=== PATIENT | female | born 1980 | race Caucasian/White ===

== ENCOUNTER 2021-04-06 18:14 | Inpatient (IN) | payer OTHER ==
[2021-04-06] MEDS ORDERED: ONDANSETRON 4 MG/2 ML VIAL IVP STA (19:44)
[2021-04-06] MEDS ORDERED: HYDROmorphone 0.5 MG/0.5 ML SYRINGE IVP STA (19:44)
[2021-04-06] MEDS ORDERED: SODIUM CHLORIDE 0.9% 500 ML 500 ML IV STA (19:44)
[2021-04-06 20:15] LABS: Appearance,Urine Turbid (Clear); Bacteria,Urine Many /hpf; Bilirubin,Urine 4+ (Negative); Blood,Urine Small (Negative); Cellular Casts,Urine 159 /lpf (0); Color,Urine Dark Brown; Glucose,Urine (UA) Trace (Negative); Granular Casts,Urine 10 /lpf (0); Hyaline Casts,Urine 119 /lpf (0-2); Ketones,Urine Negative (Negative); Leukocyte Esterase,Urine Small (Negative); Mucus,Urine Many /hpf; Nitrite,Urine Negative (Negative); PH, Urine 5.5 (5.0-8.0); Protein,Urine 1+ (Negative); RBC,Urine 7 /hpf (0-5); Specific Gravity,Urine 1.024 (1.001-1.035); Squamous Epithelial Cell,Urine 130 /hpf (0-4); WBC,Urine 57 /hpf (0-5)
[2021-04-06 20:26] LABS: ALT 65 U/L (4-34); AST 254 U/L (14-36); African American GFR (CKD) >90 (>60 ml/min/1.73 sqM); Albumin 3.3 g/dL (3.5-5.0); Alkaline Phosphatase 339 U/L (38-126); Anion Gap 16 mmol/L; Blood Urea Nitrogen 5 mg/dL (7-17); Calcium 8.2 mg/dL (8.4-10.2); Carbon Dioxide 21 mmol/L (22-30); Chloride 82 mmol/L (98-107); Glucose 124 mg/dL (74-99); Lipase 188 U/L (23-300); Non-African American GFR(CKD) >90 (>60 ml/min/1.73 sqM)
[2021-04-06 20:27] LABS: Potassium 3.2 mmol/L (3.5-5.1); Sodium 119 mmol/L (137-145); Total Bilirubin 15.7 mg/dL (0.2-1.3)
[2021-04-06 20:32] LABS: INR 1.7 (<1.2); Partial Thromboplastin Time 33.3 sec (22.0-30.0); Prothrombin Time 16.5 sec (9.0-12.0)
[2021-04-06 20:39] LABS: Anisocytosis Slight; Basophils # (A) 0.1 k/uL (0-0.2); Basophils % (A) 1 %; Eosinophils % (A) 0 %; HCT 39.7 % (34.0-46.0); HGB 13.2 gm/dL (11.4-16.0); Lymphocytes # (A) 1.4 k/uL (1.0-4.8); Lymphocytes % (A) 9 %; MCH 39.3 pg (25.0-35.0); MCHC 33.3 g/dL (31.0-37.0); MCV 118.2 fL (80.0-100.0); Macrocytosis Marked; Mean Platelet Volume 10.2; Monocytes % (A) 6 %; Neutrophils # (A) 13.2 k/uL (1.3-7.7); Neutrophils % (A) 83 %; RBC 3.36 m/uL (3.80-5.40); WBC 15.8 k/uL (3.8-10.6)
[2021-04-06] MEDS ORDERED: POTASSIUM CHLORIDE ER 20 MEQ TAB.ER PO STA (21:09)
--- NOTE | 2021-04-06 21:35 | US ---
EXAMINATION TYPE: US abdomen limited DATE OF EXAM: 04/06/2021 COMPARISON: NONE CLINICAL HISTORY: RUQ - jaundice, abd pain. Pain, jaundice. EXAM MEASUREMENTS: Liver Length: 15.7 cm Gallbladder Wall: 0.41 cm CBD: 1.12 cm Right Kidney: 11.0 x 5.5 x 6.3 cm Limited due to bowel gas. Pancreas: Limited due to bowel gas. Liver: Appears coarse in echotexture. Hyperechoic. Gallbladder: Folds seen. Wall appears to be thickened. Evidence for sonographic Grimes's sign: Patient felt pain throughout exam. CBD: Appears dilated. Right Kidney: No hydronephrosis or masses seen -Fluid seen within the right upper quadrant measuring 9.0 x 7.4 x 7.0 cm. IMPRESSION: Small right upper quadrant abdominal ascites. Heterogeneous liver, suggestive of chronic disease. Nonspecific gallbladder wall thickening, may be reactive to ascites. No definite gallstones seen. Dilated CBD.
--- NOTE | 2021-04-06 21:45 | ED ---
General Adult HPI - General Chief complaint: Abdominal Pain Stated complaint: Jaundice/Abd Pain Time Seen by Provider: 04/06/21 19:03 Source: patient Mode of arrival: ambulatory Limitations: no limitations - History of Present Illness Initial comments: 40 year-old female patient presents to the emergency department for evaluation of upper abdominal pain and yellowing to her skin and eyes. Patient states that the yellowing started about a week ago. States that with this she also developed pain to the upper abdomen states it radiates to her back. States she is unable to eat. Reports nausea but no vomiting. Does report daily alcohol use. Denies history of abdominal surgery. States her stools are brown. Denies difficulty with urination. Denies any increased swelling in the abdomen. Denies fever or chills. Patient denies any recent rash, cough, shortness of breath, chest pain, diarrhea, constipation, numbness, tingling, dizziness, weakness, headache, visual changes, or any other complaints. - Related Data Home Medications Medication Instructions Recorded Confirmed L.acidoph,Paracasei, B.lactis 1 cap PO DAILY 04/06/21 04/06/21 [Probiotic] Allergies Allergy/AdvReac Type Severity Reaction Status Date / Time No Known Allergies Allergy Verified 04/06/21 19:47 Review of Systems ROS Statement: Those systems with pertinent positive or pertinent negative responses have been documented in the HPI. ROS Other: All systems not noted in ROS Statement are negative. Past Medical History Additional Past Medical History / Comment(s): alcoholism History of Any Multi-Drug Resistant Organisms: None Reported Additional Past Surgical History / Comment(s): foot, nasal Past Psychological History: No Psychological Hx Reported Smoking Status: Never smoker Past Alcohol Use History: Abuse, Daily Past Drug Use History: None Reported General Exam Limitations: no limitations General appearance: alert, in no apparent distress, other (This is a well-developed, well-nourished adult female patient in no acute distress. Vital signs upon presentation are temperature 97.5F, pulse 122, respirations 18, blood pressure 123/78, pulse ox 100% on room air.) Eye exam: Present: PERRL, EOMI, scleral icterus. Absent: conjunctival injection , periorbital swelling ENT exam: Present: normal exam, normal oropharynx, mucous membranes moist Respiratory exam: Present: normal lung sounds bilaterally. Absent: respiratory distress, wheezes, rales, rhonchi, stridor Cardiovascular Exam: Present: regular rate, normal rhythm, normal heart sounds. Absent: systolic murmur, diastolic murmur, rubs, gallop, clicks GI/Abdominal exam: Present: soft, tenderness (Midepigastric), normal bowel sounds. Absent: distended, guarding, rebound, rigid Neurological exam: Present: alert, oriented X3, CN II-XII intact Psychiatric exam: Present: normal affect, normal mood Skin exam: Present: warm, dry, intact, normal color. Absent: rash Course Vital Signs 04/06/21 04/06/21 04/06/21 18:37 19:03 20:03 Temperature 97.5 F L Pulse Rate 122 H 120 H 117 H Respiratory 18 18 18 Rate Blood Pressure 123/78 131/93 123/85 O2 Sat by Pulse 100 98 98 Oximetry 04/06/21 04/06/21 21:32 22:54 Temperature 97.6 F Pulse Rate 103 H 107 H Respiratory 18 18 Rate Blood Pressure 131/100 132/100 O2 Sat by Pulse 97 96 Oximetry Medical Decision Making - Medical Decision Making 40-year-old female patient presents to the emergency department today for junior luation of yellowing skin and upper abdominal pain. Physical examination did reveal a distended abdomen, scleral icterus, jaundice. She is neurologically intact. Labs reviewed and did reveal white blood cell count of 15.8, INR 1.7. Sodium 119, potassium 3.2. Glucose 124, lactic acid 4.7, bilirubin 15.7, AST 254, ALT 65, alk phos 339. Albumin is 3.3. Urinalysis showed 57 WBC, but 130 squamous epithelial cells so we will send this for culture. Alcohol less than 10 here. Labs added on for further evaluation of hyponatremia. She was given 500ml fluid bolus on arrival. Further fluids will be held pending repeat sodium level. Patient will be admitted. Consults to nephrology and gastroenterology. She is agreeable with this plan. Case discussed with my attending Dr. Raines. - Lab Data Result diagrams: 04/06/21 19:57 04/06/21 19:57 Lab Results 04/06/21 04/06/21 04/06/21 Range/Units 19:57 19:57 19:57 WBC 15.8 H (3.8-10.6) k/uL RBC 3.36 L (3.80-5.40) m/uL Hgb 13.2 (11.4-16.0) gm/dL Hct 39.7 (34.0-46.0) % MCV 118.2 H (80.0-100.0) fL MCH 39.3 H (25.0-35.0) pg MCHC 33.3 (31.0-37.0) g/dL RDW 17.0 H (11.5-15.5) % Plt Count (150-450) k/uL MPV 10.2 Neutrophils % 83 % Lymphocytes % 9 % Monocytes % 6 % Eosinophils % 0 % Basophils % 1 % Neutrophils # 13.2 H (1.3-7.7) k/uL Lymphocytes # 1.4 (1.0-4.8) k/uL Monocytes # 1.0 (0-1.0) k/uL Eosinophils # 0.0 (0-0.7) k/uL Basophils # 0.1 (0-0.2) k/uL Manual Slide Review Performed Anisocytosis Slight Macrocytosis Marked A PT 16.5 H (9.0-12.0) sec INR 1.7 H (<1.2) APTT 33.3 H (22.0-30.0) sec Sodium (137-145) mmol/L Potassium (3.5-5.1) mmol/L Chloride (98-107) mmol/L Carbon Dioxide (22-30) mmol/L Anion Gap mmol/L BUN (7-17) mg/dL Creatinine (0.52-1.04) mg/dL Est GFR (CKD-EPI)AfAm (>60 ml/min/1.73 sqM) Est GFR (CKD-EPI)NonAf (>60 ml/min/1.73 sqM) Glucose (74-99) mg/dL Lactic Ac Sepsis Rflx Plasma Lactic Acid Robin (0.7-2.0) mmol/L Calcium (8.4-10.2) mg/dL Total Bilirubin (0.2-1.3) mg/dL AST (14-36) U/L ALT (4-34) U/L Alkaline Phosphatase (38-126) U/L Total Protein (6.3-8.2) g/dL Albumin (3.5-5.0) g/dL Lipase (23-300) U/L Urine Color Dark Brown Urine Appearance Turbid H (Clear) Urine pH 5.5 (5.0-8.0) Ur Specific [place] 1.024 (1.001-1.035) Urine Protein 1+ H (Negative) Urine Glucose (UA) Trace H (Negative) Urine Ketones Negative (Negative) Urine Blood Small H (Negative) Urine Nitrite Negative (Negative) Urine Bilirubin 4+ H (Negative) Urine Urobilinogen 6.0 (<2.0) mg/dL Ur Leukocyte Esterase Small H (Negative) Urine RBC 7 H (0-5) /hpf Urine WBC 57 H (0-5) /hpf Urine WBC Clumps Many H (None) /hpf Ur Squamous Epith Cells 130 H (0-4) /hpf Urine Bacteria Many H (None) /hpf Cellular Casts 159 (0) /lpf Hyaline Casts 119 H (0-2) /lpf Granular Casts 10 (0) /lpf Urine Mucus Many H (None) /hpf Urine HCG, Qual (Not Detectd) Serum Alcohol mg/dL 04/06/21 04/06/21 04/06/21 Range/Units 19:57 19:57 19:57 WBC (3.8-10.6) k/uL RBC (3.80-5.40) m/uL Hgb (11.4-16.0) gm/dL Hct (34.0-46.0) % MCV (80.0-100.0) fL MCH (25.0-35.0) pg MCHC (31.0-37.0) g/dL RDW (11.5-15.5) % Plt Count (150-450) k/uL MPV Neutrophils % % Lymphocytes % % Monocytes % % Eosinophils % % Basophils % % Neutrophils # (1.3-7.7) k/uL Lymphocytes # (1.0-4.8) k/uL Monocytes # (0-1.0) k/uL Eosinophils # (0-0.7) k/uL Basophils # (0-0.2) k/uL Manual Slide Review Anisocytosis Macrocytosis PT (9.0-12.0) sec INR (<1.2) APTT (22.0-30.0) sec Sodium 119 L* (137-145) mmol/L Potassium 3.2 L (3.5-5.1) mmol/L Chloride 82 L (98-107) mmol/L Carbon Dioxide 21 L (22-30) mmol/L Anion Gap 16 mmol/L BUN 5 L (7-17) mg/dL Creatinine 0.62 (0.52-1.04) mg/dL Est GFR (CKD-EPI)AfAm >90 (>60 ml/min/1.73 sqM) Est GFR (CKD-EPI)NonAf >90 (>60 ml/min/1.73 sqM) Glucose 124 H (74-99) mg/dL Lactic Ac Sepsis Rflx Plasma Lactic Acid Robin 4.7 H* (0.7-2.0) mmol/L Calcium 8.2 L (8.4-10.2) mg/dL Total Bilirubin 15.7 H* (0.2-1.3) mg/dL AST 254 H (14-36) U/L ALT 65 H (4-34) U/L Alkaline Phosphatase 339 H (38-126) U/L Total Protein 8.0 (6.3-8.2) g/dL Albumin 3.3 L (3.5-5.0) g/dL Lipase 188 (23-300) U/L Urine Color Urine Appearance (Clear) Urine pH (5.0-8.0) Ur Specific [place] (1.001-1.035) Urine Protein (Negative) Urine Glucose (UA) (Negative) Urine Ketones (Negative) Urine Blood (Negative) Urine Nitrite (Negative) Urine Bilirubin (Negative) Urine Urobilinogen (<2.0) mg/dL Ur Leukocyte Esterase (Negative) Urine RBC (0-5) /hpf Urine WBC (0-5) /hpf Urine WBC Clumps (None) /hpf Ur Squamous Epith Cells (0-4) /hpf Urine Bacteria (None) /hpf Cellular Casts (0) /lpf Hyaline Casts (0-2) /lpf Granular Casts (0) /lpf Urine Mucus (None) /hpf Urine HCG, Qual Not Detected (Not Detectd) Serum Alcohol mg/dL 04/06/21 04/06/21 Range/Units 20:29 20:45 WBC (3.8-10.6) k/uL RBC (3.80-5.40) m/uL Hgb (11.4-16.0) gm/dL Hct (34.0-46.0) % MCV (80.0-100.0) fL MCH (25.0-35.0) pg MCHC (31.0-37.0) g/dL RDW (11.5-15.5) % Plt Count (150-450) k/uL MPV Neutrophils % % Lymphocytes % % Monocytes % % Eosinophils % % Basophils % % Neutrophils # (1.3-7.7) k/uL Lymphocytes # (1.0-4.8) k/uL Monocytes # (0-1.0) k/uL Eosinophils # (0-0.7) k/uL Basophils # (0-0.2) k/uL Manual Slide Review Anisocytosis Macrocytosis PT (9.0-12.0) sec INR (<1.2) APTT (22.0-30.0) sec Sodium (137-145) mmol/L Potassium (3.5-5.1) mmol/L Chloride (98-107) mmol/L Carbon Dioxide (22-30) mmol/L Anion Gap mmol/L BUN (7-17) mg/dL Creatinine (0.52-1.04) mg/dL Est GFR (CKD-EPI)AfAm (>60 ml/min/1.73 sqM) Est GFR (CKD-EPI)NonAf (>60 ml/min/1.73 sqM) Glucose (74-99) mg/dL Lactic Ac Sepsis Rflx Y Plasma Lactic Acid Robin (0.7-2.0) mmol/L Calcium (8.4-10.2) mg/dL Total Bilirubin (0.2-1.3) mg/dL AST (14-36) U/L ALT (4-34) U/L Alkaline Phosphatase (38-126) U/L Total Protein (6.3-8.2) g/dL Albumin (3.5-5.0) g/dL Lipase (23-300) U/L Urine Color Urine Appearance (Clear) Urine pH (5.0-8.0) Ur Specific [place] (1.001-1.035) Urine Protein (Negative) Urine Glucose (UA) (Negative) Urine Ketones (Negative) Urine Blood (Negative) Urine Nitrite (Negative) Urine Bilirubin (Negative) Urine Urobilinogen (<2.0) mg/dL Ur Leukocyte Esterase (Negative) Urine RBC (0-5) /hpf Urine WBC (0-5) /hpf Urine WBC Clumps (None) /hpf Ur Squamous Epith Cells (0-4) /hpf Urine Bacteria (None) /hpf Cellular Casts (0) /lpf Hyaline Casts (0-2) /lpf Granular Casts (0) /lpf Urine Mucus (None) /hpf Urine HCG, Qual (Not Detectd) Serum Alcohol <10 mg/dL - Radiology Data Radiology results: report reviewed, image reviewed Ultrasound of the abdomen and right upper quadrant is obtained. Report is reviewed in its entirety. Impression by Dr. Samuels shows small right upper quadrant abdominal ascites, heterogenous liver, suggestive of chronic disease. Nonspecific gallbladder wall thickening, may be reactive to ascites. No definite gallstones seen. Dilated CBD. Disposition Clinical Impression: Liver failure, Hyponatremia, Hypokalemia, Lactic acidosis, Hypomagnesemia Disposition: ADMITTED IP TO THIS [facility] Condition: Serious Decision Date: 04/06/21 Decision Time: 22:14
[2021-04-06] MEDS ORDERED: NALOXONE 0.4 MG/ML 1 ML VIAL IV PRN (22:40)
[2021-04-06] MEDS ORDERED: ONDANSETRON 4 MG/2 ML VIAL IVP PRN (22:40)
[2021-04-06] MEDS ORDERED: LORazepam 2 MG/ML INJ IV PRN ×3 (23:06)
[2021-04-06] MEDS ORDERED: THIAMINE 100 MG/ML 2 ML VIAL IM STA (23:06)
[2021-04-06 23:19] LABS: Magnesium 1.3 mg/dL (1.6-2.3); Uric Acid 3.3 mg/dL (3.7-7.4)
[2021-04-06] MEDS ORDERED: Magnesium Replacement Protocol 1 EACH MISC MISCELLANE PRN (23:26)
[2021-04-06] MEDS: THIAMINE 100 MG TAB PO SCH (23:36)
[2021-04-06] MEDS: MAGNESIUM SULFATE-D5W PMX 1 GM in DEXTROSE/WATER 1 100ML.BAG IVPB SCH (23:43)
[2021-04-06 23:57] LABS: Creatinine,Urine Random 429.2 mg/dL
[2021-04-07] MEDS: MAGNESIUM SULFATE-D5W PMX 1 GM in DEXTROSE/WATER 1 100ML.BAG IVPB SCH ×2 (01:00→02:34)
--- NOTE | 2021-04-07 02:18 | P.HPIM ---
History of Present Illness H&P Date: 04/06/21 Patient is a 40-year-old female with a PMH of EtOH abuse who presented to the emergency room with complaints of abdominal distention and yellowing of her skin. The patient reports that her symptoms gradually worsened over the past 1 week. She reports diffuse mild abdominal discomfort due to the distention, some of which radiates to the back bilaterally. She reports poor appetite. Denied nausea, vomiting, diarrhea. She reports drinking 1-1/2 pint of libra daily for the past 2-3 years. Last drink was yesterday. Has been drinking heavily for the past 10 years or so. Denied any history of abdominal surgeries. Denied blood in stools or black tarry stools. Further denied chest pain, shortness of breath, cough, fever, chills. Denied headaches, weakness, numbness, tingling. The patient lives at home with her boyfriend who financial supports her. Review of systems: Pertinent positives and negatives as discussed in HPI, a complete review of systems was performed and all other systems are negative. Physical examination: General: Jaundiced female, no distress, appears older than stated age, normal weight Derm: no unusual rashes/lesions no unusual ecchymoses, warm, dry Head: atraumatic, normocephalic, symmetric Eyes: EOMI, no lid lag, scleral icterus noted, pupils equal round reactive to light ENT: Nose and ears atraumatic, no thrush, no pharyngeal erythema Neck: No thyromegaly, no cervical lymphadenopathy, trachea midline, supple Mouth: no lip lesion, mucus membranes moist Cardiovascular: S1S2 reg, no murmur, positive posterior tibial pulse bilateral, no edema, capillary refill less than 2 seconds Lungs: CTA bilateral, no rhonchi, no rales , no accessory muscle use Abdominal: soft, slightly distended, nontender to palpation, no guarding, no appreciable organomegaly, normal bowel sounds Ext: no gross muscle atrophy, muscle strength 5 out of 5 in all 4 extremities grossly, no contractures, Neuro: CN II-XI grossly intact, light touch intact all 4 extremities, finger to nose within normal limits, no asterixis Psych: Alert, oriented, appropriate affect Assessment/plan Severe hyponatremia, may be secondary to hepatorenal syndrome with decompensated cirrhosis -Workup ordered -Fluid restriction for now -Monitor closely and avoid overcorrection -Nephrology consulted Hypokalemia, hypomagnesemia -Replace and monitor Newly diagnosed alcoholic cirrhosis -MELD score 30: 53% 3 month mortality -Discussed with poor prognosis with the patient and urged the importance of abstinence from alcohol -Ceftriaxone for SBP prophylaxis -GI consult -Hold off on beta blockade at this time due to severe hyponatremia Significant history of EtOH abuse -Thiamine -CIWA protocol Lactic acidosis -Hold off on IV fluids -Monitor for resolution Macrocytosis -Obtain anemia panel DVT prophylaxis -IPCDs The patient is admitted with an anticipated greater than 2 midnight stay for evaluation of cirrhosis CODE STATUS: Full Code Discussed with: Patient, Boyfriend Anticipated discharge date: 2-[address]: Home Past Medical History Additional Past Medical History / Comment(s): alcoholism History of Any Multi-Drug Resistant Organisms: None Reported Additional Past Surgical History / Comment(s): foot, nasal Past Psychological History: No Psychological Hx Reported Smoking Status: Never smoker Past Alcohol Use History: Abuse, Daily Past Drug Use History: None Reported - Past Family History Father Family Medical History: Hypertension Medications and Allergies Home Medications Medication Instructions Recorded Confirmed Type L.acidoph,Paracasei, B.lactis 1 cap PO DAILY 04/06/21 04/06/21 History [Probiotic] Allergies Allergy/AdvReac Type Severity Reaction Status Date / Time No Known Allergies Allergy Verified 04/06/21 19:47 Physical Exam Vitals: Vital Signs Temp Pulse Resp BP Pulse Ox 04/06/21 22:54 107 H 18 132/100 96 04/06/21 21:32 97.6 F 103 H 18 131/100 97 04/06/21 20:03 117 H 18 123/85 98 04/06/21 19:03 120 H 18 131/93 98 04/06/21 18:37 97.5 F L 122 H 18 123/78 100 Intake and Output 04/06/21 04/06/21 04/07/21 14:59 22:59 06:59 Other: Weight 61.235 kg Results CBC & Chem 7: 04/06/21 19:57 04/06/21 19:57 Labs: Abnormal Lab Results - Last 24 Hours (Table) 04/06/21 04/06/21 04/06/21 Range/Units 19:57 19:57 19:57 WBC 15.8 H (3.8-10.6) k/uL RBC 3.36 L (3.80-5.40) m/uL MCV 118.2 H (80.0-100.0) fL MCH 39.3 H (25.0-35.0) pg RDW 17.0 H (11.5-15.5) % Neutrophils # 13.2 H (1.3-7.7) k/uL Macrocytosis Marked A PT 16.5 H (9.0-12.0) sec INR 1.7 H (<1.2) APTT 33.3 H (22.0-30.0) sec Sodium (137-145) mmol/L Potassium (3.5-5.1) mmol/L Chloride (98-107) mmol/L Carbon Dioxide (22-30) mmol/L BUN (7-17) mg/dL Glucose (74-99) mg/dL Plasma Lactic Acid Robin (0.7-2.0) mmol/L Uric Acid (3.7-7.4) mg/dL Calcium (8.4-10.2) mg/dL Magnesium (1.6-2.3) mg/dL Total Bilirubin (0.2-1.3) mg/dL AST (14-36) U/L ALT (4-34) U/L Alkaline Phosphatase (38-126) U/L Albumin (3.5-5.0) g/dL Urine Appearance Turbid H (Clear) Urine Protein 1+ H (Negative) Urine Glucose (UA) Trace H (Negative) Urine Blood Small H (Negative) Urine Bilirubin 4+ H (Negative) Ur Leukocyte Esterase Small H (Negative) Urine RBC 7 H (0-5) /hpf Urine WBC 57 H (0-5) /hpf Urine WBC Clumps Many H (None) /hpf Ur Squamous Epith Cells 130 H (0-4) /hpf Urine Bacteria Many H (None) /hpf Hyaline Casts 119 H (0-2) /lpf Urine Mucus Many H (None) /hpf 04/06/21 04/06/21 04/06/21 Range/Units 19:57 19:57 22:50 WBC (3.8-10.6) k/uL RBC (3.80-5.40) m/uL MCV (80.0-100.0) fL MCH (25.0-35.0) pg RDW (11.5-15.5) % Neutrophils # (1.3-7.7) k/uL Macrocytosis PT (9.0-12.0) sec INR (<1.2) APTT (22.0-30.0) sec Sodium 119 L* (137-145) mmol/L Potassium 3.2 L (3.5-5.1) mmol/L Chloride 82 L (98-107) mmol/L Carbon Dioxide 21 L (22-30) mmol/L BUN 5 L (7-17) mg/dL Glucose 124 H (74-99) mg/dL Plasma Lactic Acid Robin 4.7 H* 3.1 H* (0.7-2.0) mmol/L Uric Acid (3.7-7.4) mg/dL Calcium 8.2 L (8.4-10.2) mg/dL Magnesium (1.6-2.3) mg/dL Total Bilirubin 15.7 H* (0.2-1.3) mg/dL AST 254 H (14-36) U/L ALT 65 H (4-34) U/L Alkaline Phosphatase 339 H (38-126) U/L Albumin 3.3 L (3.5-5.0) g/dL Urine Appearance (Clear) Urine Protein (Negative) Urine Glucose (UA) (Negative) Urine Blood (Negative) Urine Bilirubin (Negative) Ur Leukocyte Esterase (Negative) Urine RBC (0-5) /hpf Urine WBC (0-5) /hpf Urine WBC Clumps (None) /hpf Ur Squamous Epith Cells (0-4) /hpf Urine Bacteria (None) /hpf Hyaline Casts (0-2) /lpf Urine Mucus (None) /hpf 04/06/21 Range/Units 22:50 WBC (3.8-10.6) k/uL RBC (3.80-5.40) m/uL MCV (80.0-100.0) fL MCH (25.0-35.0) pg RDW (11.5-15.5) % Neutrophils # (1.3-7.7) k/uL Macrocytosis PT (9.0-12.0) sec INR (<1.2) APTT (22.0-30.0) sec Sodium (137-145) mmol/L Potassium (3.5-5.1) mmol/L Chloride (98-107) mmol/L Carbon Dioxide (22-30) mmol/L BUN (7-17) mg/dL Glucose (74-99) mg/dL Plasma Lactic Acid Robin (0.7-2.0) mmol/L Uric Acid 3.3 L (3.7-7.4) mg/dL Calcium (8.4-10.2) mg/dL Magnesium 1.3 L (1.6-2.3) mg/dL Total Bilirubin (0.2-1.3) mg/dL AST (14-36) U/L ALT (4-34) U/L Alkaline Phosphatase (38-126) U/L Albumin (3.5-5.0) g/dL Urine Appearance (Clear) Urine Protein (Negative) Urine Glucose (UA) (Negative) Urine Blood (Negative) Urine Bilirubin (Negative) Ur Leukocyte Esterase (Negative) Urine RBC (0-5) /hpf Urine WBC (0-5) /hpf Urine WBC Clumps (None) /hpf Ur Squamous Epith Cells (0-4) /hpf Urine Bacteria (None) /hpf Hyaline Casts (0-2) /lpf Urine Mucus (None) /hpf
[2021-04-07] MEDS: THIAMINE 100 MG TAB PO SCH ×2 (06:30→16:46)
[2021-04-07 08:04] LABS: African American GFR (CKD) >90 (>60 ml/min/1.73 sqM); Anion Gap 10 mmol/L; Blood Urea Nitrogen 6 mg/dL (7-17); Calcium 8.6 mg/dL (8.4-10.2); Carbon Dioxide 27 mmol/L (22-30); Chloride 82 mmol/L (98-107); Glucose 119 mg/dL (74-99); Magnesium 2.4 mg/dL (1.6-2.3); Non-African American GFR(CKD) >90 (>60 ml/min/1.73 sqM); Potassium 3.9 mmol/L (3.5-5.1)
[2021-04-07 08:05] LABS: Sodium 119 mmol/L (137-145)
[2021-04-07 10:21] LABS: Albumin 2.8 g/dL (3.5-5.0); Bilirubin, Delta 3.6 mg/dL (0.0-0.2); Bilirubin,Unconjugated 2.7 mg/dL (0.0-1.1); Total Bilirubin 14.3 mg/dL (0.2-1.3); Total Protein 7.2 g/dL (6.3-8.2)
[2021-04-07] MEDS: SODIUM CHLORIDE TAB 1 GM TAB PO SCH ×2 (10:32→20:47)
[2021-04-07 10:33] LABS: INR 1.7 (<1.2); Prothrombin Time 16.6 sec (9.0-12.0)
--- NOTE | 2021-04-07 12:20 | CONS ---
CONSULTATION REASON FOR CONSULT: Hyponatremia. HISTORY OF PRESENT ILLNESS: The patient is a 40-year-old female who was admitted to the hospital with a history of increased lower extremity swelling as well as abdominal swelling. The patient has history of significant alcohol use for many years. She was noted to have a serum sodium of 119. Patient denies any established history of chronic liver disease. She denied any diarrhea, nausea, vomiting prior to admission. The patient is not aware of having had low sodium levels previously. Patient denies use of any medications at home except probiotics. There is no history of numbness, tingling sensation. Serum sodium was 119 on admission. The patient did get a 500 mL bolus in the emergency room and her serum sodium this morning was again 119. PAST MEDICAL HISTORY: None. PAST SURGICAL HISTORY: None. SOCIAL HISTORY: Negative for smoking, but patient has history of alcohol abuse. MEDICATIONS: Probiotics. ALLERGIES: None. REVIEW OF SYSTEMS: As per HPI. Other systems negative. PHYSICAL EXAMINATION: Currently comfortable, awake, alert, oriented x3, not in any acute distress. Blood pressure 140/62, heart rate 101 per minute, she is afebrile. Examination of the heart S1, S2. Examination of the lungs, decreased breath sounds at the bases. Abdomen is soft, nontender. Examination of lower extremities shows no significant edema. Ascites is noted. [employer] exam grossly intact. LAB: Show sodium 119, potassium 3.9, chloride 82, CO2 is 27, BUN 6, serum creatinine 0.75. Lactic acid was 3.1, down to 1.9 now. Total bilirubin 14.3. Cortisol level 43. TSH 3.37. Random urine sodium less than 10. Urine osmolality 379. ASSESSMENT: 1. Hyponatremia associated with underlying chronic liver disease as well as alcohol abuse. Urine osmolality is not elevated and I will add sodium chloride tabs and repeat serum sodium in about 4 hours. I will consider normal saline challenge again based on her repeat sodium level this afternoon. The patient is advised to increase oral intake of protein and she is advised to decrease/discontinue use of alcohol. 2. Lactic acidosis currently improved. 3. Pyuria, rule out urinary tract infection. Patient is started on antibiotics. Urine culture currently pending. 4. ETOH abuse. 5. Hypomagnesemia associated with decreased oral intake. PLAN: Sodium chloride tabs 1 g x1 now and repeat sodium this afternoon and rechallenge with normal saline later on today. Increase oral protein intake. Thank you for this consultation. Will continue to follow the patient with you during her hospitalization. MMODL / IJN: [id number] /
[2021-04-07 13:34] LABS: African American GFR (CKD) >90 (>60 ml/min/1.73 sqM); Anion Gap 9 mmol/L; Blood Urea Nitrogen 6 mg/dL (7-17); Calcium 8.5 mg/dL (8.4-10.2); Carbon Dioxide 27 mmol/L (22-30); Chloride 82 mmol/L (98-107); Glucose 89 mg/dL (74-99); Non-African American GFR(CKD) >90 (>60 ml/min/1.73 sqM); Potassium 4.8 mmol/L (3.5-5.1)
[2021-04-07 13:35] LABS: Sodium 118 mmol/L (137-145)
[2021-04-07] MEDS ORDERED: MORPHINE SULFATE 2 MG/ML SYRINGE IVP STA (13:55)
[2021-04-07] MEDS ORDERED: SODIUM CHLORIDE 0.9% 1,000 ML IV SCH (14:15)
--- NOTE | 2021-04-07 14:59 | P.CONS ---
History of Present Illness - Reason for Consult Consult date: 04/07/21 hyperbilirubinemia, liver disease Requesting physician: Johnathan Brand - Chief Complaint Abdominal distention and jaundice - History of Present Illness This is a 40-year-old white female who presented to the emergency department yesterday evening with complaints of abdominal distention and yellowing of her eyes. She has a history of significant alcohol use and has been drinking since she was 19 years old. She states that she's been heavily drinking for the last 3-4 years, approximately 1-1/2 pints of libra a day. She started noticing abdominal distention and yellowing of her eyes approximately one week ago, Monday she started having a lot of bloating and dark urine. She went to urgent care and they sent her to the emergency department for further evaluation. He denies any previous known history of liver disease, she does not follow regularly with the primary care physician. Denies any previous history of hepatitis. On presentation BBC 15.8, hemoglobin 13.2, hematocrit 37.1 platelet count undetermined, INR 1.7, total bilirubin 15.7, alkaline phosphatase 339, AST 254, ALT 65, lipase 188. Patient was also noted to be hyponatremic, sodium level 119. Abdominal ultrasound shows small right upper quadrant abdominal ascites, heterogeneous liver, suggestive of chronic disease. Nonspecific gallbladder wall thickening, may be reactive to ascites. No definite gallstones seen. Review of Systems REVIEW OF SYSTEMS: CARDIOPULMONARY: No chest pain or shortness of breath. Gastrointestinal: Abdominal distention. No nausea or vomiting. No hematemesis, coffee-ground emesis. No rectal bleeding, or melena. GENITOURINARY: No dysuria or hematuria. MUSCULOSKELETAL: Reports normal range of motion., Joint pain. SKIN: No rashes. Jaundice. ENDOCRINE: No chills, fevers. No excessive weight gain or loss. No polydipsia or polyuria. PSYCHIATRIC: Unremarkable. NEUROLOGY: No change in mental status. Denies dizziness, headache. ENT: Vision unremarkable. CONSTITUTIONAL: No recent weight loss. No fever, chills, night sweats. Past Medical History Additional Past Medical History / Comment(s): alcoholism History of Any Multi-Drug Resistant Organisms: None Reported Additional Past Surgical History / Comment(s): foot, nasal Past Psychological History: No Psychological Hx Reported Smoking Status: Never smoker Past Alcohol Use History: Abuse, Daily Past Drug Use History: None Reported - Past Family History Father Family Medical History: Hypertension Medications and Allergies Home Medications Medication Instructions Recorded Confirmed Type L.acidoph,Paracasei, B.lactis 1 cap PO DAILY 04/06/21 04/06/21 History [Probiotic] Allergies Allergy/AdvReac Type Severity Reaction Status Date / Time No Known Allergies Allergy Verified 04/06/21 19:47 Physical Exam Vitals: Vital Signs Temp Pulse Pulse Resp BP BP Pulse Ox 04/07/21 12:00 108 H 20 105/72 98 04/07/21 08:00 97.7 F 98 20 119/85 97 04/07/21 04:15 98.0 F 101 H 16 140/62 97 04/07/21 02:00 104 H 16 04/07/21 00:02 97.6 F 104 H 16 140/76 98 04/06/21 22:54 107 H 18 132/100 96 04/06/21 21:32 97.6 F 103 H 18 131/100 97 04/06/21 20:03 117 H 18 123/85 98 04/06/21 19:03 120 H 18 131/93 98 04/06/21 18:37 97.5 F L 122 H 18 123/78 100 Intake and Output 04/06/21 04/07/21 04/07/21 22:59 06:59 14:59 Intake Total 0 Balance 0 Intake: Oral 0 Other: Voiding Method Toilet # Voids 1 Weight 61.235 kg 61.9 kg General appearance: The patient is alert, oriented, appears in no acute distress. HET: Head is normocephalic and atraumatic. Conjunctiva pink. Sclera deeply i cteric. Neck: Supple without lymphadenopathy. Trachea midline. Heart: S1 S2. Regular rate and rhythm. Lungs: Clear to auscultation. Abdomen: Soft, nontender, nondistended with bowel sounds. No guarding or rigidity. Skin: No rashes. Jaundice. Extremities: Normal skin color and turgor. No pedal edema. Neurological: No focal deficits. Alert and oriented 3.. Results CBC & Chem 7: 04/06/21 19:57 04/07/21 12:57 Labs: Abnormal Lab Results - Last 24 Hours (Table) 07/13/21 07/13/21 07/13/21 Range/Units 19:57 19:57 19:57 WBC 15.8 H (3.8-10.6) k/uL RBC 3.36 L (3.80-5.40) m/uL MCV 118.2 H (80.0-100.0) fL MCH 39.3 H (25.0-35.0) pg RDW 17.0 H (11.5-15.5) % Neutrophils # 13.2 H (1.3-7.7) k/uL Macrocytosis Marked A PT 16.5 H (9.0-12.0) sec INR 1.7 H (<1.2) APTT 33.3 H (22.0-30.0) sec Sodium (137-145) mmol/L Potassium (3.5-5.1) mmol/L Chloride (98-107) mmol/L Carbon Dioxide (22-30) mmol/L BUN (7-17) mg/dL Glucose (74-99) mg/dL Osmolality (280-301) mosm/kg Plasma Lactic Acid Robin (0.7-2.0) mmol/L Uric Acid (3.7-7.4) mg/dL Calcium (8.4-10.2) mg/dL Magnesium (1.6-2.3) mg/dL Total Bilirubin (0.2-1.3) mg/dL Conjugated Bilirubin (0.0-0.3) mg/dL Unconjugated Bilirubin (0.0-1.1) mg/dL Delta Bilirubin (0.0-0.2) mg/dL AST (14-36) U/L ALT (4-34) U/L Alkaline Phosphatase (38-126) U/L Albumin (3.5-5.0) g/dL Urine Appearance Turbid H (Clear) Urine Protein 1+ H (Negative) Urine Glucose (UA) Trace H (Negative) Urine Blood Small H (Negative) Urine Bilirubin 4+ H (Negative) Ur Leukocyte Esterase Small H (Negative) Urine RBC 7 H (0-5) /hpf Urine WBC 57 H (0-5) /hpf Urine WBC Clumps Many H (None) /hpf Ur Squamous Epith Cells 130 H (0-4) /hpf Urine Bacteria Many H (None) /hpf Hyaline Casts 119 H (0-2) /lpf Urine Mucus Many H (None) /hpf 04/06/21 04/06/21 04/06/21 Range/Units 19:57 19:57 22:50 WBC (3.8-10.6) k/uL RBC (3.80-5.40) m/uL MCV (80.0-100.0) fL MCH (25.0-35.0) pg RDW (11.5-15.5) % Neutrophils # (1.3-7.7) k/uL Macrocytosis PT (9.0-12.0) sec INR (<1.2) APTT (22.0-30.0) sec Sodium 119 L* (137-145) mmol/L Potassium 3.2 L (3.5-5.1) mmol/L Chloride 82 L (98-107) mmol/L Carbon Dioxide 21 L (22-30) mmol/L BUN 5 L (7-17) mg/dL Glucose 124 H (74-99) mg/dL Osmolality (280-301) mosm/kg Plasma Lactic Acid Robin 4.7 H* 3.1 H* (0.7-2.0) mmol/L Uric Acid (3.7-7.4) mg/dL Calcium 8.2 L (8.4-10.2) mg/dL Magnesium (1.6-2.3) mg/dL Total Bilirubin 15.7 H* (0.2-1.3) mg/dL Conjugated Bilirubin (0.0-0.3) mg/dL Unconjugated Bilirubin (0.0-1.1) mg/dL Delta Bilirubin (0.0-0.2) mg/dL AST 254 H (14-36) U/L ALT 65 H (4-34) U/L Alkaline Phosphatase 339 H (38-126) U/L Albumin 3.3 L (3.5-5.0) g/dL Urine Appearance (Clear) Urine Protein (Negative) Urine Glucose (UA) (Negative) Urine Blood (Negative) Urine Bilirubin (Negative) Ur Leukocyte Esterase (Negative) Urine RBC (0-5) /hpf Urine WBC (0-5) /hpf Urine WBC Clumps (None) /hpf Ur Squamous Epith Cells (0-4) /hpf Urine Bacteria (None) /hpf Hyaline Casts (0-2) /lpf Urine Mucus (None) /hpf 04/06/21 04/07/21 04/07/21 Range/Units 22:50 07:17 07:19 WBC (3.8-10.6) k/uL RBC (3.80-5.40) m/uL MCV (80.0-100.0) fL MCH (25.0-35.0) pg RDW (11.5-15.5) % Neutrophils # (1.3-7.7) k/uL Macrocytosis PT (9.0-12.0) sec INR (<1.2) APTT (22.0-30.0) sec Sodium 119 L* (137-145) mmol/L Potassium (3.5-5.1) mmol/L Chloride 82 L (98-107) mmol/L Carbon Dioxide (22-30) mmol/L BUN 6 L (7-17) mg/dL Glucose 119 H (74-99) mg/dL Osmolality (280-301) mosm/kg Plasma Lactic Acid Robin (0.7-2.0) mmol/L Uric Acid 3.3 L (3.7-7.4) mg/dL Calcium (8.4-10.2) mg/dL Magnesium 1.3 L 2.4 H (1.6-2.3) mg/dL Total Bilirubin 14.3 H (0.2-1.3) mg/dL Conjugated Bilirubin 8.0 H (0.0-0.3) mg/dL Unconjugated Bilirubin 2.7 H (0.0-1.1) mg/dL Delta Bilirubin 3.6 H (0.0-0.2) mg/dL AST 196 H (14-36) U/L ALT 61 H (4-34) U/L Alkaline Phosphatase 300 H (38-126) U/L Albumin 2.8 L (3.5-5.0) g/dL Urine Appearance (Clear) Urine Protein (Negative) Urine Glucose (UA) (Negative) Urine Blood (Negative) Urine Bilirubin (Negative) Ur Leukocyte Esterase (Negative) Urine RBC (0-5) /hpf Urine WBC (0-5) /hpf Urine WBC Clumps (None) /hpf Ur Squamous Epith Cells (0-4) /hpf Urine Bacteria (None) /hpf Hyaline Casts (0-2) /lpf Urine Mucus (None) /hpf 04/07/21 04/07/21 04/07/21 Range/Units 07:19 09:53 12:57 WBC (3.8-10.6) k/uL RBC (3.80-5.40) m/uL MCV (80.0-100.0) fL MCH (25.0-35.0) pg RDW (11.5-15.5) % Neutrophils # (1.3-7.7) k/uL Macrocytosis PT 16.6 H (9.0-12.0) sec INR 1.7 H (<1.2) APTT (22.0-30.0) sec Sodium 118 L* (137-145) mmol/L Potassium (3.5-5.1) mmol/L Chloride 82 L (98-107) mmol/L Carbon Dioxide (22-30) mmol/L BUN 6 L (7-17) mg/dL Glucose (74-99) mg/dL Osmolality 245 L* (280-301) mosm/kg Plasma Lactic Acid Robin (0.7-2.0) mmol/L Uric Acid (3.7-7.4) mg/dL Calcium (8.4-10.2) mg/dL Magnesium (1.6-2.3) mg/dL Total Bilirubin (0.2-1.3) mg/dL Conjugated Bilirubin (0.0-0.3) mg/dL Unconjugated Bilirubin (0.0-1.1) mg/dL Delta Bilirubin (0.0-0.2) mg/dL AST (14-36) U/L ALT (4-34) U/L Alkaline Phosphatase (38-126) U/L Albumin (3.5-5.0) g/dL Urine Appearance (Clear) Urine Protein (Negative) Urine Glucose (UA) (Negative) Urine Blood (Negative) Urine Bilirubin (Negative) Ur Leukocyte Esterase (Negative) Urine RBC (0-5) /hpf Urine WBC (0-5) /hpf Urine WBC Clumps (None) /hpf Ur Squamous Epith Cells (0-4) /hpf Urine Bacteria (None) /hpf Hyaline Casts (0-2) /lpf Urine Mucus (None) /hpf Microbiology - Last 24 Hours (Table) 04/06/21 19:57 Urine Culture - Preliminary Urine,Voided Comments: Abdominal ultrasound: Small right upper quadrant abdominal ascites, heterogeneous liver, suggestive of chronic disease. Nonspecific gallbladder wall thickening may be reactive to ascites. No definite gallstones seen. Assessment and Plan (1) Liver failure Narrative/Plan: 40-year-old female who presented to the emergency department after being evaluated in urgent care for abdominal distention and jaundice. Patient has a history of significant alcohol abuse, stated she started drinking at 19 years old. She has been drinking 1-2 pints of libra a day. She started noticing some abdominal distention and yellowing of her skin about a week ago, Monday she started noticing that her eyes were becoming deeply yellow and her urine was getting very dark. She denies any previous history of liver disease, no history of hepatitis. On presentation her LFTs were consistent with alcoholic hepatitis, ultrasound shows findings consistent with cirrhosis of the liver. Current Visit: Yes Status: Acute Code(s): K72.90 - HEPATIC FAILURE, UNSPECIFIED WITHOUT COMA SNOMED Code(s): 46940450 (2) Hyperbilirubinemia Current Visit: Yes Status: Acute Code(s): E80.6 - OTHER DISORDERS OF BILIRUBIN METABOLISM SNOMED Code(s): 54768566 (3) Alcoholic cirrhosis Current Visit: Yes Status: Acute Code(s): K70.30 - ALCOHOLIC CIRRHOSIS OF LIVER WITHOUT ASCITES SNOMED Code(s): 519094378 (4) Hypokalemia Narrative/Plan: Nephrology on consult for acute kidney injury and abnormal electrolytes Current Visit: Yes Status: Acute Code(s): E87.6 - HYPOKALEMIA SNOMED Code(s): 62885826 (5) Hypomagnesemia Current Visit: Yes Status: Acute Code(s): E83.42 - HYPOMAGNESEMIA SNOMED Code(s): 234026533 (6) Hyponatremia Current Visit: Yes Status: Acute Code(s): E87.1 - HYPO-OSMOLALITY AND HYPONATREMIA SNOMED Code(s): 66677788 Plan: 1. Patient may have regular diet 2. Continue symptomatic and supportive care 3. Avoid hepatotoxic medications 4. Alcohol cessation, discussed with patient importance of alcohol cessation otherwise will lead to progression of disease. Katherine this consultation, we will continue to follow 5. Repeat CMP daily 6. Repeat INR in the morning Thank you for this consultation, we will continue to follow Dr. K Tumma I agree with the dictator's note, documented as a scribe by Linda Owen.
[2021-04-07 15:00] LABS: Hepatitis A Antibody IgM Non-Reactive (Non-Reactive); Hepatitis B Core IgM Non-Reactive (Non-Reactive); Hepatitis B Surface Antigen Non-Reactive (Non-Reactive); Hepatitis C IgG Antibody Non-Reactive (Non-Reactive)
--- NOTE | 2021-04-07 16:11 | P.PN ---
Subjective Progress Note Date: 04/07/21 Patient was seen and evaluated by me today. She denies any abdominal pain. No fevers or chills. She said that she had a bowel movement this morning that was slightly loose with no blood or black stool. Patient admits to heavy drinking for many many years and she said that she stopped last Monday. She is not having any evidence of withdrawal. Objective - Vital Signs Vital signs: Vital Signs Temp 97.7 F 04/07/21 08:00 Pulse 108 H 04/07/21 12:00 Resp 20 04/07/21 12:00 BP 105/72 04/07/21 12:00 Pulse Ox 98 04/07/21 12:00 Intake & Output 04/06/21 04/07/21 04/07/21 18:59 06:59 18:59 Intake Total 0 Balance 0 Weight 61.235 kg 61.9 kg Intake: Oral 0 Other: Voiding Method Toilet # Voids 1 - Exam General: The patient is awake and alert, in no distress Eye: there is normal conjunctiva bilaterally. Neck: The neck is supple, there is no JVD. Cardiovascular: Normal S1-S2, no S3-S4, no murmurs. Respiratory: Lungs clear to auscultation bilaterally Gastrointestinal: Abdomen is soft, nontender Musculoskeletal: There is no pedal edema. Neurological:. Speech is normal. Skin: Skin is warm and dry - Labs CBC & Chem 7: 04/06/21 19:57 04/07/21 12:57 Labs: Abnormal Lab Results - Last 24 Hours (Table) 04/06/21 04/06/21 04/06/21 Range/Units 19:57 19:57 19:57 WBC 15.8 H (3.8-10.6) k/uL RBC 3.36 L (3.80-5.40) m/uL MCV 118.2 H (80.0-100.0) fL MCH 39.3 H (25.0-35.0) pg RDW 17.0 H (11.5-15.5) % Neutrophils # 13.2 H (1.3-7.7) k/uL Macrocytosis Marked A PT 16.5 H (9.0-12.0) sec INR 1.7 H (<1.2) APTT 33.3 H (22.0-30.0) sec Sodium (137-145) mmol/L Potassium (3.5-5.1) mmol/L Chloride (98-107) mmol/L Carbon Dioxide (22-30) mmol/L BUN (7-17) mg/dL Glucose (74-99) mg/dL Osmolality (280-301) mosm/kg Plasma Lactic Acid Robin (0.7-2.0) mmol/L Uric Acid (3.7-7.4) mg/dL Calcium (8.4-10.2) mg/dL Magnesium (1.6-2.3) mg/dL Total Bilirubin (0.2-1.3) mg/dL Conjugated Bilirubin (0.0-0.3) mg/dL Unconjugated Bilirubin (0.0-1.1) mg/dL Delta Bilirubin (0.0-0.2) mg/dL AST (14-36) U/L ALT (4-34) U/L Alkaline Phosphatase (38-126) U/L Albumin (3.5-5.0) g/dL Urine Appearance Turbid H (Clear) Urine Protein 1+ H (Negative) Urine Glucose (UA) Trace H (Negative) Urine Blood Small H (Negative) Urine Bilirubin 4+ H (Negative) Ur Leukocyte Esterase Small H (Negative) Urine RBC 7 H (0-5) /hpf Urine WBC 57 H (0-5) /hpf Urine WBC Clumps Many H (None) /hpf Ur Squamous Epith Cells 130 H (0-4) /hpf Urine Bacteria Many H (None) /hpf Hyaline Casts 119 H (0-2) /lpf Urine Mucus Many H (None) /hpf 04/06/21 04/06/21 04/06/21 Range/Units 19:57 19:57 22:50 WBC (3.8-10.6) k/uL RBC (3.80-5.40) m/uL MCV (80.0-100.0) fL MCH (25.0-35.0) pg RDW (11.5-15.5) % Neutrophils # (1.3-7.7) k/uL Macrocytosis PT (9.0-12.0) sec INR (<1.2) APTT (22.0-30.0) sec Sodium 119 L* (137-145) mmol/L Potassium 3.2 L (3.5-5.1) mmol/L Chloride 82 L (98-107) mmol/L Carbon Dioxide 21 L (22-30) mmol/L BUN 5 L (7-17) mg/dL Glucose 124 H (74-99) mg/dL Osmolality (280-301) mosm/kg Plasma Lactic Acid Robin 4.7 H* 3.1 H* (0.7-2.0) mmol/L Uric Acid (3.7-7.4) mg/dL Calcium 8.2 L (8.4-10.2) mg/dL Magnesium (1.6-2.3) mg/dL Total Bilirubin 15.7 H* (0.2-1.3) mg/dL Conjugated Bilirubin (0.0-0.3) mg/dL Unconjugated Bilirubin (0.0-1.1) mg/dL Delta Bilirubin (0.0-0.2) mg/dL AST 254 H (14-36) U/L ALT 65 H (4-34) U/L Alkaline Phosphatase 339 H (38-126) U/L Albumin 3.3 L (3.5-5.0) g/dL Urine Appearance (Clear) Urine Protein (Negative) Urine Glucose (UA) (Negative) Urine Blood (Negative) Urine Bilirubin (Negative) Ur Leukocyte Esterase (Negative) Urine RBC (0-5) /hpf Urine WBC (0-5) /hpf Urine WBC Clumps (None) /hpf Ur Squamous Epith Cells (0-4) /hpf Urine Bacteria (None) /hpf Hyaline Casts (0-2) /lpf Urine Mucus (None) /hpf 04/06/21 04/07/21 04/07/21 Range/Units 22:50 07:17 07:19 WBC (3.8-10.6) k/uL RBC (3.80-5.40) m/uL MCV (80.0-100.0) fL MCH (25.0-35.0) pg RDW (11.5-15.5) % Neutrophils # (1.3-7.7) k/uL Macrocytosis PT (9.0-12.0) sec INR (<1.2) APTT (22.0-30.0) sec Sodium 119 L* (137-145) mmol/L Potassium (3.5-5.1) mmol/L Chloride 82 L (98-107) mmol/L Carbon Dioxide (22-30) mmol/L BUN 6 L (7-17) mg/dL Glucose 119 H (74-99) mg/dL Osmolality (280-301) mosm/kg Plasma Lactic Acid Robin (0.7-2.0) mmol/L Uric Acid 3.3 L (3.7-7.4) mg/dL Calcium (8.4-10.2) mg/dL Magnesium 1.3 L 2.4 H (1.6-2.3) mg/dL Total Bilirubin 14.3 H (0.2-1.3) mg/dL Conjugated Bilirubin 8.0 H (0.0-0.3) mg/dL Unconjugated Bilirubin 2.7 H (0.0-1.1) mg/dL Delta Bilirubin 3.6 H (0.0-0.2) mg/dL AST 196 H (14-36) U/L ALT 61 H (4-34) U/L Alkaline Phosphatase 300 H (38-126) U/L Albumin 2.8 L (3.5-5.0) g/dL Urine Appearance (Clear) Urine Protein (Negative) Urine Glucose (UA) (Negative) Urine Blood (Negative) Urine Bilirubin (Negative) Ur Leukocyte Esterase (Negative) Urine RBC (0-5) /hpf Urine WBC (0-5) /hpf Urine WBC Clumps (None) /hpf Ur Squamous Epith Cells (0-4) /hpf Urine Bacteria (None) /hpf Hyaline Casts (0-2) /lpf Urine Mucus (None) /hpf 04/07/21 04/07/21 04/07/21 Range/Units 07:19 09:53 12:57 WBC (3.8-10.6) k/uL RBC (3.80-5.40) m/uL MCV (80.0-100.0) fL MCH (25.0-35.0) pg RDW (11.5-15.5) % Neutrophils # (1.3-7.7) k/uL Macrocytosis PT 16.6 H (9.0-12.0) sec INR 1.7 H (<1.2) APTT (22.0-30.0) sec Sodium 118 L* (137-145) mmol/L Potassium (3.5-5.1) mmol/L Chloride 82 L (98-107) mmol/L Carbon Dioxide (22-30) mmol/L BUN 6 L (7-17) mg/dL Glucose (74-99) mg/dL Osmolality 245 L* (280-301) mosm/kg Plasma Lactic Acid Robin (0.7-2.0) mmol/L Uric Acid (3.7-7.4) mg/dL Calcium (8.4-10.2) mg/dL Magnesium (1.6-2.3) mg/dL Total Bilirubin (0.2-1.3) mg/dL Conjugated Bilirubin (0.0-0.3) mg/dL Unconjugated Bilirubin (0.0-1.1) mg/dL Delta Bilirubin (0.0-0.2) mg/dL AST (14-36) U/L ALT (4-34) U/L Alkaline Phosphatase (38-126) U/L Albumin (3.5-5.0) g/dL Urine Appearance (Clear) Urine Protein (Negative) Urine Glucose (UA) (Negative) Urine Blood (Negative) Urine Bilirubin (Negative) Ur Leukocyte Esterase (Negative) Urine RBC (0-5) /hpf Urine WBC (0-5) /hpf Urine WBC Clumps (None) /hpf Ur Squamous Epith Cells (0-4) /hpf Urine Bacteria (None) /hpf Hyaline Casts (0-2) /lpf Urine Mucus (None) /hpf Microbiology - Last 24 Hours (Table) 04/06/21 19:57 Urine Culture - Preliminary Urine,Voided Assessment and Plan Assessment: This is a 40-year-old female who presented to the emergency room with worsening abdominal distention and jaundice. Patient was evaluated in the ER and admitted to the hospital for further management of her medical problems noted below. 1. Alcoholic liver cirrhosis 2. Small ascites 3. Hyponatremia: Patient was challenged with IV fluid hydration. She is curre ntly on salt tablets twice daily. Lab work is monitored closely. 4. Hypokalemia and hypomagnesemia: Replaced per protocol 5. Moderate protein/calorie malnutrition with albumin level of 2.8 6. Alcohol abuse: Patient counseled extensively to quit. She verbalizes importance of quitting. She is currently on Ativan as needed per [facility] protocol. Started on thiamine twice daily Today, I reviewed her medication list and lab work results. There is no clinical suspicion for SBP. GI and nephrology consulted, appreciate recommendations.
[2021-04-07 17:39] LABS: % Iron Saturation 60.57 (12.00-45.00); Ferritin 2676.8 ng/mL (10.0-291.0)
[2021-04-07 19:48] LABS: African American GFR (CKD) >90 (>60 ml/min/1.73 sqM); Anion Gap 8 mmol/L; Blood Urea Nitrogen 7 mg/dL (7-17); Calcium 8.1 mg/dL (8.4-10.2); Carbon Dioxide 27 mmol/L (22-30); Chloride 81 mmol/L (98-107); Glucose 112 mg/dL (74-99); Non-African American GFR(CKD) 80 (>60 ml/min/1.73 sqM); Potassium 4.1 mmol/L (3.5-5.1)
[2021-04-07 20:00] LABS: Sodium 116 mmol/L (137-145)
[2021-04-07 22:02] LABS: Glucose,Whole Blood 110 mg/dL (75-99)
[2021-04-07] MEDS: SODIUM CHLORIDE 3%(HYPERTONIC) 500 ML IV SCH (22:59)
[2021-04-07] MEDS: MORPHINE SULFATE 2 MG/ML SYRINGE IVP PRN (23:29)
[2021-04-08 02:54] LABS: Anisocytosis Slight; HCT 34.7 % (34.0-46.0); HGB 12.3 gm/dL (11.4-16.0); MCHC 35.4 g/dL (31.0-37.0); MCV 118.8 fL (80.0-100.0); Macrocytosis Marked; Mean Platelet Volume 8.1; Platelet Count 257 k/uL (150-450); RBC 2.92 m/uL (3.80-5.40); RDW 16.2 % (11.5-15.5); WBC 14.4 k/uL (3.8-10.6)
[2021-04-08 03:05] LABS: MCH 42.1 pg (25.0-35.0)
[2021-04-08 03:08] LABS: INR 1.9 (<1.2); Prothrombin Time 18.5 sec (9.0-12.0)
[2021-04-08 03:10] LABS: ALT 57 U/L (4-34); AST 166 U/L (14-36); African American GFR (CKD) >90 (>60 ml/min/1.73 sqM); Albumin 2.7 g/dL (3.5-5.0); Alkaline Phosphatase 266 U/L (38-126); Anion Gap 9 mmol/L; Blood Urea Nitrogen 7 mg/dL (7-17); Carbon Dioxide 20 mmol/L (22-30); Chloride 86 mmol/L (98-107); Glucose 86 mg/dL (74-99); Non-African American GFR(CKD) 84 (>60 ml/min/1.73 sqM); Potassium 4.6 mmol/L (3.5-5.1); Total Bilirubin 13.9 mg/dL (0.2-1.3); Total Protein 6.9 g/dL (6.3-8.2)
[2021-04-08 03:11] LABS: Sodium 115 mmol/L (137-145)
[2021-04-08] MEDS: THIAMINE 100 MG TAB PO SCH ×2 (07:11→17:12)
[2021-04-08 07:32] LABS: Potassium 5.4 mmol/L (3.5-5.1)
[2021-04-08] MEDS: MORPHINE SULFATE 2 MG/ML SYRINGE IVP PRN ×4 (08:44→23:17)
[2021-04-08] MEDS: SODIUM CHLORIDE TAB 1 GM TAB PO SCH ×2 (09:55→22:57)
[2021-04-08] MEDS ORDERED: FUROSEMIDE 10 MG/ML 4 ML VIAL IV STA (11:06)
[2021-04-08 11:20] LABS: ALT 58 U/L (4-34); AST 167 U/L (14-36); African American GFR (CKD) >90 (>60 ml/min/1.73 sqM); Albumin 2.8 g/dL (3.5-5.0); Alkaline Phosphatase 295 U/L (38-126); Anion Gap 7 mmol/L; Blood Urea Nitrogen 8 mg/dL (7-17); Calcium 8.2 mg/dL (8.4-10.2); Carbon Dioxide 25 mmol/L (22-30); Chloride 88 mmol/L (98-107); Glucose 102 mg/dL (74-99); Non-African American GFR(CKD) 78 (>60 ml/min/1.73 sqM); Potassium 4.6 mmol/L (3.5-5.1); Sodium 120 mmol/L (137-145)
--- NOTE | 2021-04-08 11:37 | P.CNPUL ---
History of Present Illness Consult date: 04/08/21 Requesting physician: Johnathan Brand Reason for consult: other (Severe hyponatremia) Chief complaint: Yellow discoloration and abdominal discomfort History of present illness: This is a 40-year-old white female with history of alcoholism, patient has been drinking since age 19, drinks heavily on the average of 1-1/2 pints of libra a day. Over the last week, patient has been noticing some abdominal bloating and distention, and has been noticing yellow discoloration of her eyes. Her bloating and yellow discoloration has also been associated with dark urine. Patient was seen in the urgent care and she was advised to go to the ER. In the ER, patient had significant abnormal labs including hypernatremia with sodium as low as 116, hyperbilirubinemia with total bilirubin of 15.7, abnormal liver enzymes with AST of 254 ALT of 65 alkaline phosphatase of 339, negative hepatitis screening for A, B, and C. Patient was initially admitted to the medical floor, however as nephrology recommended 3% saline for her hypernatremia, patient was transferred to the ICU, and she is still receiving 3% saline at rate of 25 mL per hour.Sodium is pending. The last sodium this morning was 117. Patient was evaluated while in the ICU, she seems very comfortable, not in any distress, she is actually on room air, seen already on consultation by gastroenterology, advised mostly supportive care measures, and close follow-up. I saw the patient and I recommended empiric antibiotics, abdominal ultrasound showed minimal ascites. Review of Systems Constitutional: Weakness and fatigue. HEENT: Positive yellow discoloration of eyes. Otherwise negative. Pulmonary: Negative. GI: As noted in HPI. Cardiac: Negative. Endocrine: Negative. Hematologic: Negative. Genitourinary: Dark discoloration of the urine. Skin: Yellow discoloration of the skin. Psychiatric: Negative. Neurologic: Negative. Past Medical History Additional Past Medical History / Comment(s): alcoholism History of Any Multi-Drug Resistant Organisms: None Reported Additional Past Surgical History / Comment(s): foot, nasal Past Psychological History: No Psychological Hx Reported Smoking Status: Never smoker Past Alcohol Use History: Abuse, Daily Past Drug Use History: None Reported - Past Family History Father Family Medical History: Hypertension Medications and Allergies Home Medications Medication Instructions Recorded Confirmed Type L.acidoph,Paracasei, B.lactis 1 cap PO DAILY 04/06/21 04/06/21 History [Probiotic] Allergies Allergy/AdvReac Type Severity Reaction Status Date / Time No Known Allergies Allergy Verified 04/06/21 19:47 Physical Exam Vitals: Vital Signs Temp Pulse Pulse Resp BP BP Pulse Ox 04/08/21 11:00 107 H 17 117/91 91 L 04/08/21 10:00 109 H 23 110/74 94 L 04/08/21 09:00 101 H 19 107/70 95 04/08/21 08:00 98.6 F 93 14 130/72 95 04/08/21 07:00 112 H 20 102/76 95 04/08/21 06:00 83 14 103/73 95 04/08/21 05:00 92 13 115/79 95 04/08/21 04:00 98.9 F 98 102 H 20 107/77 94 L 04/08/21 03:00 90 16 102/76 94 L 04/08/21 02:00 97 15 102/76 94 L 04/08/21 01:00 98 12 111/79 94 L 04/08/21 00:29 101 H 14 94 L 04/08/21 00:00 98.1 F 98 102 H 22 113/86 93 L 04/07/21 23:00 105 H 23 118/80 94 L 04/07/21 22:20 99 19 96 04/07/21 22:15 95 18 95 04/07/21 20:35 98.0 F 103 H 16 130/70 97 04/07/21 16:00 97.5 F L 89 20 108/67 96 04/07/21 12:00 108 H 20 105/72 98 Intake and Output 04/07/21 04/08/21 04/08/21 22:59 06:59 14:59 Intake Total 255 200 175 Output Total 0 Balance 255 200 175 Intake: Intake, IV Titration 75 200 175 Amount Sodium Chloride 0.9% 1, 75 000 ml @ 75 mls/hr IV . [id number] [facility] Rx#:[id number] Sodium Chloride 3%( 200 125 Hypertonic) 500 ml @ 25 mls/hr IV .Q20H [facility] Rx#: [id number] cefTRIAXone 1 gm In 50 Sodium Chloride 0.9% 50 ml @ 100 mls/hr IVPB Q24HR [facility] Rx#:[id number] Oral 180 Output: Urine 0 Other: Voiding Method Toilet Toilet # Voids 1 1 Weight 63.4 kg Physical Exam: Revealed a 60-year-old female in no distress. On room air. Head: Atraumatic, normocephalic. HEENT: PERRLA, EOMI, ectatic sclerae noted. No neck masses, no JVD, no stridor. No thyromegaly. Chest: Symmetrical chest expansion. [Clear throughout, no crackles, no rhonchi, no wheezes.] Cardiac Exam: [Normal S1 and S2, no S3 gallop, no murmur.] Abdomen: Slightly distended, nontender, liver is felt to be enlarged, 4 cm below the right costal margin., no rebound, no guarding, normal bowel sounds.] Extremities: [No clubbing, no edema, no cyanosis.] Good pulses bilaterally. Neurological Exam: [No focal neurologic deficit.] Alert and oriented 3. Psychiatric: Normal mood affect and normal mental status examination. Skin: Yellow discoloration of the skin, good perfusion noted. Results - Laboratory Findings CBC and BMP: 04/08/21 02:22 04/08/21 06:41 PT/INR, D-dimer PT 18.5 sec (9.0-12.0) H 04/08/21 02:22 INR 1.9 (<1.2) H 04/08/21 02:22 Abnormal lab findings: Abnormal Labs 04/06/21 04/06/21 04/06/21 19:57 19:57 19:57 WBC 15.8 H RBC 3.36 L MCV 118.2 H MCH 39.3 H RDW 17.0 H Neutrophils # 13.2 H Macrocytosis Marked A PT 16.5 H INR 1.7 H APTT 33.3 H Sodium Potassium Chloride Carbon Dioxide BUN Glucose POC Glucose (mg/dL) Osmolality Plasma Lactic Acid Robin Uric Acid Calcium Magnesium TIBC % Saturation Ferritin Total Bilirubin Conjugated Bilirubin Unconjugated Bilirubin Delta Bilirubin AST ALT Alkaline Phosphatase Albumin Urine Appearance Turbid H Urine Protein 1+ H Urine Glucose (UA) Trace H Urine Blood Small H Urine Bilirubin 4+ H Ur Leukocyte Esterase Small H Urine RBC 7 H Urine WBC 57 H Urine WBC Clumps Many H Ur Squamous Epith Cells 130 H Urine Bacteria Many H Hyaline Casts 119 H Urine Mucus Many H 04/06/21 04/06/21 04/06/21 19:57 19:57 22:50 WBC RBC MCV MCH RDW Neutrophils # Macrocytosis PT INR APTT Sodium 119 L* Potassium 3.2 L Chloride 82 L Carbon Dioxide 21 L BUN 5 L Glucose 124 H POC Glucose (mg/dL) Osmolality Plasma Lactic Acid Robin 4.7 H* 3.1 H* Uric Acid Calcium 8.2 L Magnesium TIBC % Saturation Ferritin Total Bilirubin 15.7 H* Conjugated Bilirubin Unconjugated Bilirubin Delta Bilirubin AST 254 H ALT 65 H Alkaline Phosphatase 339 H Albumin 3.3 L Urine Appearance Urine Protein Urine Glucose (UA) Urine Blood Urine Bilirubin Ur Leukocyte Esterase Urine RBC Urine WBC Urine WBC Clumps Ur Squamous Epith Cells Urine Bacteria Hyaline Casts Urine Mucus 04/06/21 04/07/21 04/07/21 22:50 07:17 07:19 WBC RBC MCV MCH RDW Neutrophils # Macrocytosis PT INR APTT Sodium 119 L* Potassium Chloride 82 L Carbon Dioxide BUN 6 L Glucose 119 H POC Glucose (mg/dL) Osmolality Plasma Lactic Acid Robin Uric Acid 3.3 L Calcium Magnesium 1.3 L 2.4 H TIBC % Saturation Ferritin Total Bilirubin 14.3 H Conjugated Bilirubin 8.0 H Unconjugated Bilirubin 2.7 H Delta Bilirubin 3.6 H AST 196 H ALT 61 H Alkaline Phosphatase 300 H Albumin 2.8 L Urine Appearance Urine Protein Urine Glucose (UA) Urine Blood Urine Bilirubin Ur Leukocyte Esterase Urine RBC Urine WBC Urine WBC Clumps Ur Squamous Epith Cells Urine Bacteria Hyaline Casts Urine Mucus 04/07/21 04/07/21 04/07/21 07:19 09:53 12:57 WBC RBC MCV MCH RDW Neutrophils # Macrocytosis PT 16.6 H INR 1.7 H APTT Sodium 118 L* Potassium Chloride 82 L Carbon Dioxide BUN 6 L Glucose POC Glucose (mg/dL) Osmolality 245 L* Plasma Lactic Acid Robin Uric Acid Calcium Magnesium TIBC 175 L % Saturation 60.57 H Ferritin 2676.8 H Total Bilirubin Conjugated Bilirubin Unconjugated Bilirubin Delta Bilirubin AST ALT Alkaline Phosphatase Albumin Urine Appearance Urine Protein Urine Glucose (UA) Urine Blood Urine Bilirubin Ur Leukocyte Esterase Urine RBC Urine WBC Urine WBC Clumps Ur Squamous Epith Cells Urine Bacteria Hyaline Casts Urine Mucus 04/07/21 04/07/21 04/08/21 18:45 22:01 02:22 WBC 14.4 H RBC 2.92 L MCV 118.8 H MCH 42.1 H RDW 16.2 H Neutrophils # Macrocytosis Marked A PT INR APTT Sodium 116 L* Potassium Chloride 81 L Carbon Dioxide BUN Glucose 112 H POC Glucose (mg/dL) 110 H Osmolality Plasma Lactic Acid Robin Uric Acid Calcium 8.1 L Magnesium TIBC % Saturation Ferritin Total Bilirubin Conjugated Bilirubin Unconjugated Bilirubin Delta Bilirubin AST ALT Alkaline Phosphatase Albumin Urine Appearance Urine Protein Urine Glucose (UA) Urine Blood Urine Bilirubin Ur Leukocyte Esterase Urine RBC Urine WBC Urine WBC Clumps Ur Squamous Epith Cells Urine Bacteria Hyaline Casts Urine Mucus 04/08/21 04/08/21 04/08/21 02:22 02:22 06:41 WBC RBC MCV MCH RDW Neutrophils # Macrocytosis PT 18.5 H INR 1.9 H APTT Sodium 115 L* 117 L* Potassium 5.4 H Chloride 86 L 89 L Carbon Dioxide 20 L 20 L BUN Glucose POC Glucose (mg/dL) Osmolality Plasma Lactic Acid Robin Uric Acid Calcium 8.0 L Magnesium TIBC % Saturation Ferritin Total Bilirubin 13.9 H Conjugated Bilirubin Unconjugated Bilirubin Delta Bilirubin AST 166 H ALT 57 H Alkaline Phosphatase 266 H Albumin 2.7 L Urine Appearance Urine Protein Urine Glucose (UA) Urine Blood Urine Bilirubin Ur Leukocyte Esterase Urine RBC Urine WBC Urine WBC Clumps Ur Squamous Epith Cells Urine Bacteria Hyaline Casts Urine Mucus - Diagnostic Findings Additional studies: Ultrasound of the abdomen was reviewed. Minimal ascites, heterogeneous appearance of the liver noted. Assessment and Plan Assessment: Impression: Severe hyponatremia secondary to alcoholism and liver disease. Electrolytes imbalance including hypokalemia and hypomagnesemia secondary to alcohol. Alcoholic cirrhosis. Hyperbilirubinemia secondary to alcoholic cirrhosis. History of alcoholism. Recommendation: Continue present supportive care measures. Continue 3% saline for now. And adjust the fluids accordingly based on the next sodium level. Once sodium is above 121, can potentially transfer the patient to a regular medical floor, and placed on 0.9 normal saline. Avoid rapid correction of sodium. Avoid hepatotoxic drugs. Counseled regarding alcohol. Continue GI prophylaxis. Empiric antibiotics since the patient has some ascites. We'll continue to follow. Time with Patient: Greater than 30
[2021-04-08 11:47] LABS: Total Protein 7.1 g/dL (6.3-8.2)
--- NOTE | 2021-04-08 11:57 | PN ---
PROGRESS NOTE Patient is seen for followup for hyponatremia. This is a young lady who was admitted with sodium of 119. She has a history of EtOH abuse. Blood pressure has been slightly on the lower side. Urine osmolality was at 379. The patient did receive a normal saline challenge and her sodium had dropped to 115 and therefore she was transferred to the ICU for a 3% saline infusion. Her sodium has improved to 117 today. The patient has some underlying edema and she has ascites. She denies any significant complaints this morning. No complaints of numbness, tingling, and no mental status changes. PHYSICAL EXAMINATION: On examination today, blood pressure is 103/73, heart rate 83 per minute, she is afebrile. Examination of the heart S1, S2. Examination of the lungs, bilateral breath sounds are heard. Abdomen is soft, nontender. Examination lower extremities shows edema 1+ bilaterally. [employer] exam is grossly intact. The patient does have ascites and abdominal distention. No asterixis noted. LAB: Show sodium 117, potassium 5.4, chloride 89. CO2 is 20, hemoglobin 12.3 g/dL. Creatinine 0.87. ASSESSMENT: 1. Hyponatremia, currently patient is hypervolemic, although her urine sodium is less than 10 given the fact that she has underlying chronic liver disease. She has salt and water retention and definitely is a component of decreased osmolar intake as well. I will continue with the 3% saline for now. However, I will give a dose of IV Lasix as well. I am trying to hold off on the [facility] given her history of EtOH abuse and elevated liver enzymes. However, if needed, she may benefit from at least one dose down the road. 2. Mild hyperkalemia, I am not sure this is accurate. We will recheck on the following labs in 4 hours. 3. ETOH abuse with underlying chronic liver disease and ascites and transaminitis. 4. Hyperbilirubinemia/portal hypertension. 5. Lactic acidosis on initial admission, currently improved. 6. Pyuria, urine culture currently pending, maintained on antibiotics. PLAN: Continue with 3% saline for now. Give IV Lasix x1 and check sodium every 4 hours for now. MMODL / IJN: [id number] /
--- NOTE | 2021-04-08 14:01 | P.PN ---
Subjective Progress Note Date: 04/08/21 Principal diagnosis: Liver failure, hyperbilirubinemia 10-year-old female who presented to the emergency department with new onset of jaundice, which he states started about a week ago along with abdominal distention. She has a history of significant alcohol abuse, drinking 1-2 pints daily. She was transferred to the ICU late last night for severe hyponatremia. She is seen and examined in the ICU sitting up in bed. She is alert and oriented 3. States she still has some abdominal tenderness, no nausea or vomiting. Sodium now up to 120. Repeat total bilirubin 13.9, alkaline phosphatase 266, AST 166, ALT 57 Objective - Vital Signs Vital signs: Vital Signs Temp 98.9 F 04/08/21 04:00 Pulse 112 H 04/08/21 07:00 Resp 20 04/08/21 07:00 BP 102/76 04/08/21 07:00 Pulse Ox 95 04/08/21 07:00 Intake & Output 04/07/21 04/08/21 04/08/21 18:59 06:59 18:59 Intake Total 180 275 25 Balance 180 275 25 Weight 63.4 kg Intake: Intake, IV Titration 275 25 Amount Sodium Chloride 0.9% 1, 75 000 ml @ 75 mls/hr IV . [id number] [facility] Rx#:[id number] Sodium Chloride 3%( 200 25 Hypertonic) 500 ml @ 25 mls/hr IV .Q20H [facility] Rx#: [id number] Oral 180 Other: Voiding Method Toilet # Voids 4 1 1 - Exam General appearance: The patient is alert, oriented, appears in no acute distress. HET: Head is normocephalic and atraumatic. Conjunctiva pink. Sclera icterus. Neck: Supple without lymphadenopathy. Abdomen: Soft, nontender, nondistended with bowel sounds. No guarding or rigidity. Extremities: Normal skin color and turgor. No pedal edema Skin: No rashes, jaundice Neurological: No focal deficits. Alert and oriented 3. - Labs CBC & Chem 7: 04/08/21 02:22 04/08/21 10:47 Labs: Abnormal Lab Results - Last 24 Hours (Table) 04/07/21 04/07/21 04/07/21 Range/Units 07:17 07:19 09:53 WBC (3.8-10.6) k/uL RBC (3.80-5.40) m/uL MCV (80.0-100.0) fL MCH (25.0-35.0) pg RDW (11.5-15.5) % Macrocytosis PT 16.6 H (9.0-12.0) sec INR 1.7 H (<1.2) Sodium (137-145) mmol/L Potassium (3.5-5.1) mmol/L Chloride (98-107) mmol/L Carbon Dioxide (22-30) mmol/L BUN (7-17) mg/dL Glucose (74-99) mg/dL POC Glucose (mg/dL) (75-99) mg/dL Calcium (8.4-10.2) mg/dL TIBC 175 L (228-460) ug/dL % Saturation 60.57 H (12.00-45.00) Ferritin 2676.8 H (10.0-291.0) ng/mL Total Bilirubin 14.3 H (0.2-1.3) mg/dL Conjugated Bilirubin 8.0 H (0.0-0.3) mg/dL Unconjugated Bilirubin 2.7 H (0.0-1.1) mg/dL Delta Bilirubin 3.6 H (0.0-0.2) mg/dL AST 196 H (14-36) U/L ALT 61 H (4-34) U/L Alkaline Phosphatase 300 H (38-126) U/L Albumin 2.8 L (3.5-5.0) g/dL 04/07/21 04/07/21 04/07/21 Range/Units 12:57 18:45 22:01 WBC (3.8-10.6) k/uL RBC (3.80-5.40) m/uL MCV (80.0-100.0) fL MCH (25.0-35.0) pg RDW (11.5-15.5) % Macrocytosis PT (9.0-12.0) sec INR (<1.2) Sodium 118 L* 116 L* (137-145) mmol/L Potassium (3.5-5.1) mmol/L Chloride 82 L 81 L (98-107) mmol/L Carbon Dioxide (22-30) mmol/L BUN 6 L (7-17) mg/dL Glucose 112 H (74-99) mg/dL POC Glucose (mg/dL) 110 H (75-99) mg/dL Calcium 8.1 L (8.4-10.2) mg/dL TIBC (228-460) ug/dL % Saturation (12.00-45.00) Ferritin (10.0-291.0) ng/mL Total Bilirubin (0.2-1.3) mg/dL Conjugated Bilirubin (0.0-0.3) mg/dL Unconjugated Bilirubin (0.0-1.1) mg/dL Delta Bilirubin (0.0-0.2) mg/dL AST (14-36) U/L ALT (4-34) U/L Alkaline Phosphatase (38-126) U/L Albumin (3.5-5.0) g/dL 04/08/21 04/08/21 04/08/21 Range/Units 02:22 02:22 02:22 WBC 14.4 H (3.8-10.6) k/uL RBC 2.92 L (3.80-5.40) m/uL MCV 118.8 H (80.0-100.0) fL MCH 42.1 H (25.0-35.0) pg RDW 16.2 H (11.5-15.5) % Macrocytosis Marked A PT 18.5 H (9.0-12.0) sec INR 1.9 H (<1.2) Sodium 115 L* (137-145) mmol/L Potassium (3.5-5.1) mmol/L Chloride 86 L (98-107) mmol/L Carbon Dioxide 20 L (22-30) mmol/L BUN (7-17) mg/dL Glucose (74-99) mg/dL POC Glucose (mg/dL) (75-99) mg/dL Calcium 8.0 L (8.4-10.2) mg/dL TIBC (228-460) ug/dL % Saturation (12.00-45.00) Ferritin (10.0-291.0) ng/mL Total Bilirubin 13.9 H (0.2-1.3) mg/dL Conjugated Bilirubin (0.0-0.3) mg/dL Unconjugated Bilirubin (0.0-1.1) mg/dL Delta Bilirubin (0.0-0.2) mg/dL AST 166 H (14-36) U/L ALT 57 H (4-34) U/L Alkaline Phosphatase 266 H (38-126) U/L Albumin 2.7 L (3.5-5.0) g/dL 04/08/21 Range/Units 06:41 WBC (3.8-10.6) k/uL RBC (3.80-5.40) m/uL MCV (80.0-100.0) fL MCH (25.0-35.0) pg RDW (11.5-15.5) % Macrocytosis PT (9.0-12.0) sec INR (<1.2) Sodium 117 L* (137-145) mmol/L Potassium 5.4 H (3.5-5.1) mmol/L Chloride 89 L (98-107) mmol/L Carbon Dioxide 20 L (22-30) mmol/L BUN (7-17) mg/dL Glucose (74-99) mg/dL POC Glucose (mg/dL) (75-99) mg/dL Calcium (8.4-10.2) mg/dL TIBC (228-460) ug/dL % Saturation (12.00-45.00) Ferritin (10.0-291.0) ng/mL Total Bilirubin (0.2-1.3) mg/dL Conjugated Bilirubin (0.0-0.3) mg/dL Unconjugated Bilirubin (0.0-1.1) mg/dL Delta Bilirubin (0.0-0.2) mg/dL AST (14-36) U/L ALT (4-34) U/L Alkaline Phosphatase (38-126) U/L Albumin (3.5-5.0) g/dL Microbiology - Last 24 Hours (Table) 04/06/21 19:57 Urine Culture - Preliminary Urine,Voided Assessment and Plan (1) Liver failure Narrative/Plan: 40-year-old female who presented to the emergency department after being evaluated in urgent care for abdominal distention and jaundice. Patient has a history of significant alcohol abuse, stated she started drinking at 19 years old. She has been drinking 1-2 pints of libra a day. She started noticing some abdominal distention and yellowing of her skin about a week ago, Monday she started noticing that her eyes were becoming deeply yellow and her urine was getting very dark. She denies any previous history of liver disease, no history of hepatitis. On presentation her LFTs were consistent with alcoholic hepatitis, ultrasound shows findings consistent with cirrhosis of the liver. Current Visit: Yes Status: Acute Code(s): K72.90 - HEPATIC FAILURE, UNSPECIFIED WITHOUT COMA SNOMED Code(s): 84231564 (2) Hyperbilirubinemia Current Visit: Yes Status: Acute Code(s): E80.6 - OTHER DISORDERS OF BILIRUBIN METABOLISM SNOMED Code(s): 32057003 (3) Alcoholic cirrhosis Current Visit: Yes Status: Acute Code(s): K70.30 - ALCOHOLIC CIRRHOSIS OF LIVER WITHOUT ASCITES SNOMED Code(s): 154501188 (4) Hypokalemia Current Visit: Yes Status: Acute Code(s): E87.6 - HYPOKALEMIA SNOMED Code(s): 83691281 (5) Hypomagnesemia Current Visit: Yes Status: Acute Code(s): E83.42 - HYPOMAGNESEMIA SNOMED Code(s): 754669849 (6) Hyponatremia Narrative/Plan: Patient was transferred to the ICU, nephrology following patient closely. Current Visit: Yes Status: Acute Code(s): E87.1 - HYPO-OSMOLALITY AND HYPONATREMIA SNOMED Code(s): 24285710 Plan: 1. Continue regular diet 2. Continue symptomatic and supportive care 3. Avoid hepatotoxic medications 4. Alcohol cessation, discussed with patient importance of alcohol cessation otherwise will lead to progression of disease. Katherine this consultation, we will continue to follow 5. Repeat CMP daily 6. Repeat INR in the morning 7. Monitor electrolytes closely, nephrology following Thank you for this consultation, we will continue to follow Dr. Robert Burroughs I agree with the dictator's note, documented as a scribe by Linda Owen.
--- NOTE | 2021-04-08 14:33 | P.PN ---
Subjective Progress Note Date: 04/08/21 Patient was seen and evaluated in the ICU this morning. She was transferred for administration of hypertonic saline. She is doing well and does not have any complaints. No acute events overnight reported by nursing staff. Objective - Vital Signs Vital signs: Vital Signs Temp 98.6 F 04/08/21 12:00 Pulse 107 H 04/08/21 14:00 Resp 16 04/08/21 14:00 BP 107/80 04/08/21 14:00 Pulse Ox 92 L 04/08/21 14:00 Intake & Output 04/07/21 04/08/21 04/08/21 18:59 06:59 18:59 Intake Total 180 275 200 Output Total 550 Balance 180 275 -350 Weight 63.4 kg Intake: Intake, IV Titration 275 200 Amount Sodium Chloride 0.9% 1, 75 000 ml @ 75 mls/hr IV . [id number] [facility] Rx#:[id number] Sodium Chloride 3%( 200 150 Hypertonic) 500 ml @ 25 mls/hr IV .Q20H [facility] Rx#: [id number] cefTRIAXone 1 gm In 50 Sodium Chloride 0.9% 50 ml @ 100 mls/hr IVPB Q24HR [facility] Rx#:[id number] Oral 180 Output: Urine 550 Other: Voiding Method Toilet Toilet # Voids 4 1 1 - Exam General: The patient is awake and alert, in no distress Eye: there is normal conjunctiva bilaterally. Neck: The neck is supple, there is no JVD. Cardiovascular: Normal S1-S2, no S3-S4, no murmurs. Respiratory: Lungs clear to auscultation bilaterally Gastrointestinal: Abdomen is soft, nontender Musculoskeletal: There is no pedal edema. Neurological:. Speech is normal. Skin: Skin is warm and dry - Labs CBC & Chem 7: 04/08/21 02:22 04/08/21 10:47 Labs: Abnormal Lab Results - Last 24 Hours (Table) 04/07/21 04/07/21 04/07/21 Range/Units 07:19 18:45 22:01 WBC (3.8-10.6) k/uL RBC (3.80-5.40) m/uL MCV (80.0-100.0) fL MCH (25.0-35.0) pg RDW (11.5-15.5) % Macrocytosis PT (9.0-12.0) sec INR (<1.2) Sodium 116 L* (137-145) mmol/L Potassium (3.5-5.1) mmol/L Chloride 81 L (98-107) mmol/L Carbon Dioxide (22-30) mmol/L Glucose 112 H (74-99) mg/dL POC Glucose (mg/dL) 110 H (75-99) mg/dL Calcium 8.1 L (8.4-10.2) mg/dL TIBC 175 L (228-460) ug/dL % Saturation 60.57 H (12.00-45.00) Ferritin 2676.8 H (10.0-291.0) ng/mL Total Bilirubin (0.2-1.3) mg/dL AST (14-36) U/L ALT (4-34) U/L Alkaline Phosphatase (38-126) U/L Albumin (3.5-5.0) g/dL 04/08/21 04/08/21 04/08/21 Range/Units 02:22 02:22 02:22 WBC 14.4 H (3.8-10.6) k/uL RBC 2.92 L (3.80-5.40) m/uL MCV 118.8 H (80.0-100.0) fL MCH 42.1 H (25.0-35.0) pg RDW 16.2 H (11.5-15.5) % Macrocytosis Marked A PT 18.5 H (9.0-12.0) sec INR 1.9 H (<1.2) Sodium 115 L* (137-145) mmol/L Potassium (3.5-5.1) mmol/L Chloride 86 L (98-107) mmol/L Carbon Dioxide 20 L (22-30) mmol/L Glucose (74-99) mg/dL POC Glucose (mg/dL) (75-99) mg/dL Calcium 8.0 L (8.4-10.2) mg/dL TIBC (228-460) ug/dL % Saturation (12.00-45.00) Ferritin (10.0-291.0) ng/mL Total Bilirubin 13.9 H (0.2-1.3) mg/dL AST 166 H (14-36) U/L ALT 57 H (4-34) U/L Alkaline Phosphatase 266 H (38-126) U/L Albumin 2.7 L (3.5-5.0) g/dL 04/08/21 04/08/21 Range/Units 06:41 10:47 WBC (3.8-10.6) k/uL RBC (3.80-5.40) m/uL MCV (80.0-100.0) fL MCH (25.0-35.0) pg RDW (11.5-15.5) % Macrocytosis PT (9.0-12.0) sec INR (<1.2) Sodium 117 L* 120 L (137-145) mmol/L Potassium 5.4 H (3.5-5.1) mmol/L Chloride 89 L 88 L (98-107) mmol/L Carbon Dioxide 20 L (22-30) mmol/L Glucose 102 H (74-99) mg/dL POC Glucose (mg/dL) (75-99) mg/dL Calcium 8.2 L (8.4-10.2) mg/dL TIBC (228-460) ug/dL % Saturation (12.00-45.00) Ferritin (10.0-291.0) ng/mL Total Bilirubin 15.0 H (0.2-1.3) mg/dL AST 167 H (14-36) U/L ALT 58 H (4-34) U/L Alkaline Phosphatase 295 H (38-126) U/L Albumin 2.8 L (3.5-5.0) g/dL Assessment and Plan Assessment: This is a 40-year-old female who presented to the emergency room with worsening abdominal distention and jaundice. Patient was evaluated in the ER and admitted to the hospital for further management of her medical problems noted below. 1. Alcoholic liver cirrhosis 2. Small ascites 3. Hyponatremia: Patient was challenged with IV fluid hydration and IV fluid with no improvement. She was started on hypertonic saline today. Nephrology following. Lab work is monitored closely. 4. Hypokalemia and hypomagnesemia: Replaced per protocol 5. Moderate protein/calorie malnutrition with albumin level of 2.8 6. Alcohol abuse: Patient counseled extensively to quit. She verbalizes importance of quitting. She is currently on Ativan as needed per [facility]WA protocol. Started on thiamine twice daily 7. Hyperbilirubinemia with transaminitis, secondary to underlying cirrhosis. viral Hepatitis panel negative 8. Coagulopathy, INR 1.9 Today, I reviewed her medication list and lab work results. There is no clinical suspicion for SBP. Patient is on IV ceftriaxone empirically. GI and nephrology following, appreciate recommendations.
[2021-04-08 15:07] LABS: Potassium 4.4 mmol/L (3.5-5.1)
[2021-04-08] MEDS: SODIUM CHLORIDE 3%(HYPERTONIC) 500 ML IV SCH (16:51)
[2021-04-08] MEDS ORDERED: FUROSEMIDE 10 MG/ML 2 ML VIAL IV ONE ×2 (19:46→20:43)
[2021-04-09] MEDS: MORPHINE SULFATE 2 MG/ML SYRINGE IVP PRN ×3 (04:33→21:07)
[2021-04-09 05:31] LABS: Anisocytosis Slight; HCT 33.2 % (34.0-46.0); HGB 11.5 gm/dL (11.4-16.0); MCH 41.2 pg (25.0-35.0); MCHC 34.7 g/dL (31.0-37.0); MCV 118.8 fL (80.0-100.0); Macrocytosis Marked; Mean Platelet Volume 8.5; Platelet Count 250 k/uL (150-450); RDW 16.2 % (11.5-15.5); WBC 11.5 k/uL (3.8-10.6)
[2021-04-09 05:48] LABS: Albumin 2.7 g/dL (3.5-5.0); Calcium 8.1 mg/dL (8.4-10.2); Magnesium 1.7 mg/dL (1.6-2.3); Potassium 3.7 mmol/L (3.5-5.1); Total Protein 7.1 g/dL (6.3-8.2)
[2021-04-09 05:50] LABS: INR 1.9 (<1.2); Prothrombin Time 18.7 sec (9.0-12.0); Total Bilirubin 15.6 mg/dL (0.2-1.3)
[2021-04-09 06:14] LABS: Anisocytosis (M) Present; Band Neutrophils % 3 %; Eosinophils # (M) 0.12 k/uL (0-0.7); Lymphocytes # (M) 1.27 k/uL (1.0-4.8); Metamyelocytes # (M) 0.12 k/uL (0); Metamyelocytes % 1 %; Monocytes # (M) 0.58 k/uL (0-1.0); Neutrophils % (M) 80 %; Nucleated Red Blood Cells 0 /100 WBC (0-0); Polychromasia Present; Target Cells Present; Total Cells Counted 200
[2021-04-09] MEDS: THIAMINE 100 MG TAB PO SCH ×2 (06:52→16:57)
[2021-04-09] MEDS ORDERED: Potassium Replacement Protocol 1 EACH MISC MISCELLANE PRN (07:49)
[2021-04-09] MEDS ORDERED: POTASSIUM CHLORIDE ER 20 MEQ TAB.ER PO SCH (08:00)
[2021-04-09] MEDS: SODIUM CHLORIDE TAB 1 GM TAB PO SCH (09:20)
[2021-04-09] MEDS: MAGNESIUM SULFATE-D5W PMX 1 GM in DEXTROSE/WATER 1 100ML.BAG IVPB SCH ×2 (09:21→10:35)
[2021-04-09] MEDS: FUROSEMIDE 10 MG/ML 4 ML VIAL IV SCH ×3 (10:11→23:28)
--- NOTE | 2021-04-09 10:15 | PN ---
PROGRESS NOTE Patient is seen for followup for hyponatremia. The patient is off of 3% saline. Her sodium level had dropped to 119 and it is back up to 120 now. She did get about 3 doses of IV Lasix yesterday. Currently patient is significantly volume overloaded with significant lower extremity edema, as well as ascites. I will discontinue her sodium chloride tabs and patient is encouraged to increase oral protein intake. PHYSICAL EXAMINATION: On examination today, blood pressure is 122/85, heart rate 112 per minute. She is afebrile. Examination of the heart S1, S2. Examination of the lungs, bilateral breath sounds are heard. Abdomen is soft, nontender. Examination of lower extremities shows edema 2 to 3+ bilaterally with abdominal distention and ascites as well. 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 LAB: Show sodium 120, potassium 3.7, serum creatinine 1.0. Total bilirubin 15.6. ASSESSMENT: 1. Hyponatremia, currently hypervolemic. We will continue to diurese patient and discontinue the sodium chloride tabs. Continue off 3% saline. If the sodium level drops again, I will give her a dose of Samsca. 2. Chronic liver disease with hyperbilirubinemia. Etiology is alcoholic liver disease. 3. Hypokalemia, hypomagnesemia secondary to decreased oral intake, currently being replaced. 4. Acute alcoholic hepatitis. The enzymes are decreasing. 5. History of EtOH abuse. PLAN: Discontinue sodium chloride tabs. Maintain scheduled dose of IV Lasix. Continue to monitor serum sodium levels. MMODL / IJN: [id number] /
--- NOTE | 2021-04-09 21:09 | P.PN ---
Subjective Progress Note Date: 04/09/21 (delayed charting seen at 1700) Principal diagnosis: yellowing of skin Patient is 86-year-old male with a complex past medical history including diabetes, fibromyalgia, hard of hearing, dyslipidemia, hypertension, and coronary artery disease with history of myocardial infarction who presented secondary to worsening cognitive disturbances and falls. He does have an ap pointment scheduled with neuropsych next week and if that does not demonstrate Lewy body dementia will be followed at the normal pressure hydrocephalus clinic associated with [facility]. His sister brought him to the hospital because he has been unsafety keep at home due to his worsening confusion and frequent falls. In the emergency room he underwent an extensive evaluation. Laboratory analysis was consistent with his known chronic kidney disease and baseline creatinine of approximately 1.3. His known to have a slight increase in his calcium level, bilirubin, AST, and total protein levels. Urine drug screen was negative. CT brain showed possible increasing rounding of the tem poral horns on lateral ventricles suggestive of possible underlying normal pressure hydrocephalus. Chest x-ray showed no acute process, mild anterior wedging of T12 and L1 recommended for clinical correlation. Patient seen and examined at bedside. He is confused and does not think he is in the hospital and is asking for money to catch Right home. He denies any pain, nausea, or vomiting. Neurology was able to speak with the family and they are concerned about his frequent falling at home and his increasing confusion. They reiterated the upcoming appointments and feel that he should have rehab rather than returning home. General: non toxic, no distress, appears at stated age Derm: warm, dry Head: atraumatic, normocephalic, symmetric Eyes: EOMI, no lid lag, anicteric sclera Mouth: no lip lesion, mucus membranes moist Cardiovascular: S1S2 reg, no murmur, positive posterior tibial pulse bilateral, Lungs: CTA bilateral, no rhonchi, no rales , no accessory muscle use Abdominal: soft, nontender to palpation, no guarding, no appreciable organomegaly Ext: no gross muscle atrophy, no edema, no contractures Neuro: CN II-XI grossly intact, no focal neuro deficits Psych: Alert to self, not oriented to place or year, flat affect Spine: No spinous process tenderness. Patient with hypercalcemia, increased protein level, increased alkaline phosphatase and changes on lumbar spine x-ray -Repeat calcium and protein level in a.m. after fluid hydration if not improved concerns for possible multiple myeloma -Consult nephrology in conjunction with patient chronic kidney disease. 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 -Neurology recommendations appreciated -PT/OT evaluation -Continue with outpatient neuropsych testing as well as follow-up with [facility] Diabetes mellitus type 2 -Levemir, sliding scale insulin -Follow blood sugars Hypertension - hold lasix - Continue with Norvasc, metoprolol Dyslipidemia -statin Objective - Vital Signs Vital signs: Vital Signs Temp 96.1 F L 04/09/21 20:00 Pulse 107 H 04/09/21 20:00 Resp 16 04/09/21 20:00 BP 124/81 04/09/21 20:00 Pulse Ox 98 04/09/21 20:00 Intake & Output 04/09/21 04/09/21 04/10/21 06:59 18:59 06:59 Intake Total 928 150 Output Total 600 200 600 Balance 328 -50 -600 Weight 65.2 kg Intake: Intake, IV Titration 150 Amount Magnesium Sulfate-D5w Pmx 100 1 gm In Dextrose/Water 1 100ml.bag @ 100 mls/hr IVPB Q1H ERICK Rx#: [id number] cefTRIAXone 1 gm In 50 Sodium Chloride 0.9% 50 ml @ 100 mls/hr IVPB Q24HR ERICK Rx#:[id number] Oral 928 Output: Urine 600 200 600 Other: Voiding Method Toilet Toilet Toilet - Labs CBC & Chem 7: 04/09/21 04:40 04/09/21 17:26 Labs: Abnormal Lab Results - Last 24 Hours (Table) 04/09/21 04/09/21 04/09/21 Range/Units 00:34 04:36 04:36 WBC (3.8-10.6) k/uL RBC (3.80-5.40) m/uL Hct (34.0-46.0) % MCV (80.0-100.0) fL MCH (25.0-35.0) pg RDW (11.5-15.5) % Neutrophils # (Manual) (1.3-7.7) k/uL Metamyelocytes # (Man) (0) k/uL Macrocytosis PT 18.7 H (9.0-12.0) sec INR 1.9 H (<1.2) Sodium 119 L* 120 L (137-145) mmol/L Chloride 87 L (98-107) mmol/L Calcium 8.1 L (8.4-10.2) mg/dL Total Bilirubin 15.6 H* (0.2-1.3) mg/dL AST 146 H (14-36) U/L ALT 54 H (4-34) U/L Alkaline Phosphatase 302 H (38-126) U/L Albumin 2.7 L (3.5-5.0) g/dL 04/09/21 04/09/21 04/09/21 Range/Units 04:40 09:23 12:59 WBC 11.5 H (3.8-10.6) k/uL RBC 2.80 L (3.80-5.40) m/uL Hct 33.2 L (34.0-46.0) % MCV 118.8 H (80.0-100.0) fL MCH 41.2 H (25.0-35.0) pg RDW 16.2 H (11.5-15.5) % Neutrophils # (Manual) 9.50 H (1.3-7.7) k/uL Metamyelocytes # (Man) 0.12 H (0) k/uL Macrocytosis Marked A PT (9.0-12.0) sec INR (<1.2) Sodium 121 L 121 L (137-145) mmol/L Chloride (98-107) mmol/L Calcium (8.4-10.2) mg/dL Total Bilirubin (0.2-1.3) mg/dL AST (14-36) U/L ALT (4-34) U/L Alkaline Phosphatase (38-126) U/L Albumin (3.5-5.0) g/dL 04/09/21 Range/Units 17:26 WBC (3.8-10.6) k/uL RBC (3.80-5.40) m/uL Hct (34.0-46.0) % MCV (80.0-100.0) fL MCH (25.0-35.0) pg RDW (11.5-15.5) % Neutrophils # (Manual) (1.3-7.7) k/uL Metamyelocytes # (Man) (0) k/uL Macrocytosis PT (9.0-12.0) sec INR (<1.2) Sodium 121 L (137-145) mmol/L Chloride (98-107) mmol/L Calcium (8.4-10.2) mg/dL Total Bilirubin (0.2-1.3) mg/dL AST (14-36) U/L ALT (4-34) U/L Alkaline Phosphatase (38-126) U/L Albumin (3.5-5.0) g/dL Microbiology - Last 24 Hours (Table) 04/06/21 19:57 Urine Culture - Final Urine,Voided Escherichia coli
--- NOTE | 2021-04-09 22:01 | P.PN ---
Subjective Progress Note Date: 04/09/21 (delayed charting seen at 1700) Principal diagnosis: yellowing of skin Patient is a 40-year-old male with a history of alcohol abuse who presented to the emergency department with complaints of abdominal distention and yellowing of her skin. She was found have severe hyponatremia, coagulopathy, elevated LFTs, and lactic acidosis. She was admitted for further monitoring. She was seen by nephrology and ultimately required 3% normal saline. She was seen by GI that concerns for cirrhosis. She was also seen by pulmonary secondary to being in the ICU. Her 3% normal saline was stopped and she was transitioned to Lasix. She was started on Rocephin for SBP prophylaxis. Patient seen and examined at bedside. She states her belly pain is unchanged, her swelling is unchanged. She denies any nausea or vomiting has been eating well. She has been drinking one to 2 pints daily since the age of 19. She is aware of the importance of abstaining from alcohol and discharge. Significant other at bedside and all questions answered. General: Ill appearing, mild distress, jaundice, appears older than stated age Derm: warm, dry Head: atraumatic, normocephalic, symmetric Eyes: EOMI, no lid lag, + scleral icterus Mouth: no lip lesion, mucus membranes moist Cardiovascular: S1S2 reg, no murmur, positive posterior tibial pulse bilateral, Lungs: CTA bilateral, no rhonchi, no rales , no accessory muscle use Abdominal: soft, tender to palpation diffusely, distended, no guarding, no appreciable organomegaly Ext: no gross muscle atrophy, 2+ edema, no contractures Neuro: CN II-XI grossly intact, no focal neuro deficits Psych: Alert, oriented, appropriate affect Symptomatic hyponatremia -Possibly secondary to beer powder kassidy versus cirrhosis -Status post 3% normal saline -Continue with diuresis -Follow serial sodium levels -Nephrology recommendations appreciated Suspect acute alcoholic hepatitis on top of decompensated cirrhosis -Patient does have abdominal pain, leukocytosis, AST to ALT ratio greater than 2 both less than 500 as well as elevated bilirubin and INR -Manage a discriminate function is a 41. We'll start the patient on prednisolone 40 mg daily -Abstain from alcohol -GI recommendations -Outpatient follow-up -Not a candidate for beta xochitl at this time secondary to blood pressure -On Rocephin for SBP prophylaxis -Hepatitis A, B, and C negative -Heterogeneous liver consistent with chronic disease -Patient with episode of confusion this evening -Check ammonia level in a.m. Coagulopathy secondary to above -Continue to monitor Alcohol abuse with impending withdrawal -Add folic acid -Thiamine -[facility] protocol Hypokalemia, resolved Lactic acidosis, resolved Hypomagnesemia, resolved Objective - Vital Signs Vital signs: Vital Signs Temp 96.1 F L 04/09/21 20:00 Pulse 107 H 04/09/21 20:00 Resp 16 04/09/21 20:00 BP 124/81 04/09/21 20:00 Pulse Ox 98 04/09/21 20:00 Intake & Output 04/09/21 04/09/21 04/10/21 06:59 18:59 06:59 Intake Total 928 150 Output Total 600 200 600 Balance 328 -50 -600 Weight 65.2 kg Intake: Intake, IV Titration 150 Amount Magnesium Sulfate-D5w Pmx 100 1 gm In Dextrose/Water 1 100ml.bag @ 100 mls/hr IVPB Q1H ERICK Rx#: [id number] cefTRIAXone 1 gm In 50 Sodium Chloride 0.9% 50 ml @ 100 mls/hr IVPB Q24HR ERICK Rx#:[id number] Oral 928 Output: Urine 600 200 600 Other: Voiding Method Toilet Toilet Toilet - Labs CBC & Chem 7: 04/09/21 04:40 04/09/21 17:26 Labs: Abnormal Lab Results - Last 24 Hours (Table) 04/09/21 04/09/21 04/09/21 Range/Units 00:34 04:36 04:36 WBC (3.8-10.6) k/uL RBC (3.80-5.40) m/uL Hct (34.0-46.0) % MCV (80.0-100.0) fL MCH (25.0-35.0) pg RDW (11.5-15.5) % Neutrophils # (Manual) (1.3-7.7) k/uL Metamyelocytes # (Man) (0) k/uL Macrocytosis PT 18.7 H (9.0-12.0) sec INR 1.9 H (<1.2) Sodium 119 L* 120 L (137-145) mmol/L Chloride 87 L (98-107) mmol/L Calcium 8.1 L (8.4-10.2) mg/dL Total Bilirubin 15.6 H* (0.2-1.3) mg/dL AST 146 H (14-36) U/L ALT 54 H (4-34) U/L Alkaline Phosphatase 302 H (38-126) U/L Albumin 2.7 L (3.5-5.0) g/dL 04/09/21 04/09/21 04/09/21 Range/Units 04:40 09:23 12:59 WBC 11.5 H (3.8-10.6) k/uL RBC 2.80 L (3.80-5.40) m/uL Hct 33.2 L (34.0-46.0) % MCV 118.8 H (80.0-100.0) fL MCH 41.2 H (25.0-35.0) pg RDW 16.2 H (11.5-15.5) % Neutrophils # (Manual) 9.50 H (1.3-7.7) k/uL Metamyelocytes # (Man) 0.12 H (0) k/uL Macrocytosis Marked A PT (9.0-12.0) sec INR (<1.2) Sodium 121 L 121 L (137-145) mmol/L Chloride (98-107) mmol/L Calcium (8.4-10.2) mg/dL Total Bilirubin (0.2-1.3) mg/dL AST (14-36) U/L ALT (4-34) U/L Alkaline Phosphatase (38-126) U/L Albumin (3.5-5.0) g/dL 04/09/21 Range/Units 17:26 WBC (3.8-10.6) k/uL RBC (3.80-5.40) m/uL Hct (34.0-46.0) % MCV (80.0-100.0) fL MCH (25.0-35.0) pg RDW (11.5-15.5) % Neutrophils # (Manual) (1.3-7.7) k/uL Metamyelocytes # (Man) (0) k/uL Macrocytosis PT (9.0-12.0) sec INR (<1.2) Sodium 121 L (137-145) mmol/L Chloride (98-107) mmol/L Calcium (8.4-10.2) mg/dL Total Bilirubin (0.2-1.3) mg/dL AST (14-36) U/L ALT (4-34) U/L Alkaline Phosphatase (38-126) U/L Albumin (3.5-5.0) g/dL Microbiology - Last 24 Hours (Table) 04/06/21 19:57 Urine Culture - Final Urine,Voided Escherichia coli
[2021-04-09] MEDS: prednisoLONE ORAL SOLUTION 15MG/5ML CUP PO SCH (23:28)
[2021-04-09] MEDS ORDERED: TOLVAPTAN 15 MG 1/2 TABLET PO ONE (23:30)
[2021-04-10 05:56] LABS: HGB 10.7 gm/dL (11.4-16.0); MCH 41.7 pg (25.0-35.0); MCHC 35.7 g/dL (31.0-37.0); MCV 116.7 fL (80.0-100.0); Macrocytosis Marked; Mean Platelet Volume 7.6; Platelet Count 261 k/uL (150-450); RBC 2.57 m/uL (3.80-5.40); WBC 11.9 k/uL (3.8-10.6)
[2021-04-10 06:06] LABS: Albumin 2.4 g/dL (3.5-5.0); Calcium 7.9 mg/dL (8.4-10.2); Magnesium 1.7 mg/dL (1.6-2.3); Potassium 3.4 mmol/L (3.5-5.1); Total Protein 6.3 g/dL (6.3-8.2)
[2021-04-10] MEDS: THIAMINE 100 MG TAB PO SCH ×2 (06:06→16:55)
[2021-04-10 06:16] LABS: Total Bilirubin 15.1 mg/dL (0.2-1.3)
[2021-04-10 06:34] LABS: Prothrombin Time 19.3 sec (9.0-12.0)
[2021-04-10] MEDS: FOLIC ACID 1 MG TAB PO SCH (08:17)
[2021-04-10] MEDS: FUROSEMIDE 10 MG/ML 4 ML VIAL IV SCH ×3 (08:17→23:40)
[2021-04-10] MEDS: MORPHINE SULFATE 2 MG/ML SYRINGE IVP PRN ×4 (08:29→23:41)
[2021-04-10] MEDS ORDERED: POTASSIUM CHLORIDE ER 20 MEQ TAB.ER PO STA (08:54)
[2021-04-10] MEDS: prednisoLONE ORAL SOLUTION 15MG/5ML CUP PO SCH (09:09)
--- NOTE | 2021-04-10 09:36 | PN ---
PROGRESS NOTE The patient is seen for followup for hyponatremia. She was initially maintained on 3% saline. Sodium level had improved to around 121 to 122. The patient is also receiving IV Lasix for significant volume overload. Her sodium has not improved much and she did get a dose of tolvaptan last night. cutter tender sodium was about the same and repeat sodium is ordered for in the next 4 hours. Overall, patient states she feels fairly stable. No major change. PHYSICAL EXAMINATION: On examination today, blood pressure 108/71, heart rate 99 per minute, she is afebrile. Examination of the heart S1, S2. Examination of the lungs, bilateral breath sounds are heard. Abdomen is soft, nontender. Examination lower extremities shows edema 2+ bilaterally. SENIOR PRODUCTION MANAGER exam grossly intact. LAB: Show sodium 120, potassium 3.4, chloride 86, BUN 10, serum creatinine 1.06. ASSESSMENT: 1. Hyponatremia, currently hypervolemic, maintained on IV Lasix status post one dose of tolvaptan yesterday. Continue to monitor sodium level. Next sodium ordered in 4 hours. Morning sodium was not very different, although it was a bit early for the action of the tolvaptan. 2. ETOH abuse. 3. Significant hyperbilirubinemia. 4. Chronic liver disease and secondary to EtOH abuse. 5. Transaminitis currently improving. PLAN: Continue to monitor sodium level. Replace potassium and consider repeat dose of tolvaptan if sodium not further improved. MMODL / IJN: [id number] /
[2021-04-10] MEDS ORDERED: PHYTONADIONE ORAL 5 MG/5 ML ORAL.SYRG PO STA (09:51)
--- NOTE | 2021-04-10 09:56 | P.PN ---
Subjective Progress Note Date: 04/09/21 Principal diagnosis: Acute alcoholic hepatitis, elevated liver enzymes, hyponatremia, alcohol abuse Patient is seen sitting in bedside with partner. No acute complaints. Urine r emains dark. Tolerating diet. No abdominal pain. Objective - Vital Signs Vital signs: Vital Signs Temp 98.3 F 04/09/21 11:00 Pulse 102 H 04/09/21 11:00 Resp 16 04/09/21 11:00 BP 110/66 04/09/21 11:00 Pulse Ox 98 04/09/21 11:00 Intake & Output 04/08/21 04/09/21 04/09/21 18:59 06:59 18:59 Intake Total 200 928 150 Output Total 850 600 200 Balance -650 328 -50 Weight 65.2 kg Intake: Intake, IV Titration 200 150 Amount Magnesium Sulfate-D5w Pmx 100 1 gm In Dextrose/Water 1 100ml.bag @ 100 mls/hr IVPB Q1H ERICK Rx#: [id number] Sodium Chloride 3%( 150 Hypertonic) 500 ml @ 25 mls/hr IV .Q20H ERICK Rx#: [id number] cefTRIAXone 1 gm In 50 50 Sodium Chloride 0.9% 50 ml @ 100 mls/hr IVPB Q24HR ERICK Rx#:[id number] Oral 928 Output: Urine 850 600 200 Other: Voiding Method Toilet Toilet Toilet # Voids 1 - Exam On physical examination, patient appears comfortable in no apparent distress. HEAD: Normocephalic, atraumatic. EYES: Scleral icterus. No conjunctival injection. MOUTH: No lesions, tongue midline. NECK: Trachea midline, no gross abnormalities. ABDOMEN: Soft, nontender. Bowel sounds are positive. No organomegaly. No guarding or rigidity. EXTREMITIES: Bilateral pedal edema. SKIN: No rashes, jaundice. NEUROLOGIC: Alert and oriented x3, no asterixis. No focal deficits. - Labs CBC & Chem 7: 04/10/21 05:37 04/10/21 05:37 Labs: Abnormal Lab Results - Last 24 Hours (Table) 04/08/21 04/08/21 04/09/21 Range/Units 14:44 19:02 00:34 WBC (3.8-10.6) k/uL RBC (3.80-5.40) m/uL Hct (34.0-46.0) % MCV (80.0-100.0) fL MCH (25.0-35.0) pg RDW (11.5-15.5) % Neutrophils # (Manual) (1.3-7.7) k/uL Metamyelocytes # (Man) (0) k/uL Macrocytosis PT (9.0-12.0) sec INR (<1.2) Sodium 122 L 119 L* 119 L* (137-145) mmol/L Chloride (98-107) mmol/L Calcium (8.4-10.2) mg/dL Total Bilirubin (0.2-1.3) mg/dL AST (14-36) U/L ALT (4-34) U/L Alkaline Phosphatase (38-126) U/L Albumin (3.5-5.0) g/dL 04/09/21 04/09/21 04/09/21 Range/Units 04:36 04:36 04:40 WBC 11.5 H (3.8-10.6) k/uL RBC 2.80 L (3.80-5.40) m/uL Hct 33.2 L (34.0-46.0) % MCV 118.8 H (80.0-100.0) fL MCH 41.2 H (25.0-35.0) pg RDW 16.2 H (11.5-15.5) % Neutrophils # (Manual) 9.50 H (1.3-7.7) k/uL Metamyelocytes # (Man) 0.12 H (0) k/uL Macrocytosis Marked A PT 18.7 H (9.0-12.0) sec INR 1.9 H (<1.2) Sodium 120 L (137-145) mmol/L Chloride 87 L (98-107) mmol/L Calcium 8.1 L (8.4-10.2) mg/dL Total Bilirubin 15.6 H* (0.2-1.3) mg/dL AST 146 H (14-36) U/L ALT 54 H (4-34) U/L Alkaline Phosphatase 302 H (38-126) U/L Albumin 2.7 L (3.5-5.0) g/dL 04/09/21 Range/Units 09:23 WBC (3.8-10.6) k/uL RBC (3.80-5.40) m/uL Hct (34.0-46.0) % MCV (80.0-100.0) fL MCH (25.0-35.0) pg RDW (11.5-15.5) % Neutrophils # (Manual) (1.3-7.7) k/uL Metamyelocytes # (Man) (0) k/uL Macrocytosis PT (9.0-12.0) sec INR (<1.2) Sodium 121 L (137-145) mmol/L Chloride (98-107) mmol/L Calcium (8.4-10.2) mg/dL Total Bilirubin (0.2-1.3) mg/dL AST (14-36) U/L ALT (4-34) U/L Alkaline Phosphatase (38-126) U/L Albumin (3.5-5.0) g/dL Microbiology - Last 24 Hours (Table) 04/06/21 19:57 Urine Culture - Final Urine,Voided Escherichia coli Assessment and Plan (1) Alcoholic cirrhosis Narrative/Plan: 40-year-old female who presented to the emergency department after being evaluated in urgent care for abdominal distention and jaundice. Patient has a history of significant alcohol abuse, stated she started drinking at 19 years old. She has been drinking 1-2 pints of libra a day. She started noticing some abdominal distention and yellowing of her skin about a week ago, Monday she started noticing that her eyes were becoming deeply yellow and her urine was getting very dark. She denies any previous history of liver disease, no history of hepatitis. On presentation her LFTs were consistent with alcoholic hepatitis, ultrasound shows findings consistent with cirrhosis of the liver, and acute viral hepatitis panel testing was negative. Current Visit: Yes Status: Acute Code(s): K70.30 - ALCOHOLIC CIRRHOSIS OF LIVER WITHOUT ASCITES SNOMED Code(s): 611222281 (2) Hyperbilirubinemia Current Visit: Yes Status: Acute Code(s): E80.6 - OTHER DISORDERS OF BILIRUBIN METABOLISM SNOMED Code(s): 09560759 Plan: 1. Continue regular diet 2. Continue symptomatic and supportive care 3. Avoid hepatotoxic medications 4. Alcohol cessation, discussed with patient importance of alcohol cessation otherwise will lead to progression of disease. Katherine this consultation, we will continue to follow 5. Repeat CMP daily 6. Repeat INR in the morning 7. Monitor electrolytes closely, nephrology following and patient currently receiving Tolvaptan and Lasix Thank you for allowing us to participate in the care of the patient we will continue to follow
--- NOTE | 2021-04-10 14:52 | P.PN ---
Subjective Progress Note Date: 04/10/21 (delayed charting seen at 1015) Principal diagnosis: yellowing of skin Patient is a 40-year-old male with a history of alcohol abuse who presented to the emergency department with complaints of abdominal distention and yellowing of her skin. She was found have severe hyponatremia, coagulopathy, elevated LFTs, and lactic acidosis. She was admitted for further monitoring. She was seen by nephrology and ultimately required 3% normal saline. She was seen by GI that concerns for cirrhosis. She was also seen by pulmonary secondary to being in the ICU. Her 3% normal saline was stopped and she was transitioned to Lasix. She was started on Rocephin for SBP prophylaxis. Her sodium did not improve and she was given a dose of Samsca. She was started on prednisolone for possible alcohol hepatitis. Patient seen and examined at bedside. She states her belly pain is unchanged, her swelling is unchanged. She denies any nausea or vomiting has been eating well. She has been drinking one to 2 pints daily since the age of 19. She is aware of the importance of abstaining from alcohol and discharge. Significant other at bedside and all questions answered. General: Ill appearing, no distress, jaundice, appears older than stated age Derm: warm, dry Head: atraumatic, normocephalic, symmetric Eyes: EOMI, no lid lag, + scleral icterus Mouth: no lip lesion, mucus membranes moist Cardiovascular: S1S2 reg, no murmur, positive posterior tibial pulse bilateral, Lungs: Decreased bs bilateral, no rhonchi, no rales , no accessory muscle use Abdominal: soft, tender to palpation diffusely, distended, no guarding, no appreciable organomegaly Ext: no gross muscle atrophy, 2+ edema, no contractures Neuro: CN II-XI grossly intact, no focal neuro deficits Psych: Alert, oriented, appropriate affect Symptomatic hyponatremia -Possibly secondary to beerpotomania versus cirrhosis -Status post 3% normal saline -Continue with diuresis -Follow serial sodium levels -Nephrology recommendations appreciated: Samsca X Suspect acute alcoholic hepatitis on top of decompensated cirrhosis -Patient does have abdominal pain, leukocytosis, AST to ALT ratio greater than 2 both less than 500 as well as elevated bilirubin and INR -Manage a discriminate function is a 41. Prednisolone 40 mg daily started 04/09/21 -Abstain from alcohol -GI recommendations -Outpatient follow-up -Not a candidate for beta xochitl at this time secondary to blood pressure -On Rocephin for SBP prophylaxis -Hepatitis A, B, and C negative -Heterogeneous liver consistent with chronic disease -Patient with episode of confusion this evening -Check ammonia level in a.m. Coagulopathy secondary to above - Vit K today -Continue to monitor Alcohol abuse with impending withdrawal -Add folic acid -Thiamine -[facility] protocol Hypokalemia, resolved Lactic acidosis, resolved Hypomagnesemia, resolved DVT prophylaxis: SCDs Discussed with: patient Anticipated discharge: in 2-[address]: home A total of 35 minutes was spent on the care of this complex patient more than 50% of the time was spent in counseling and care coordination. Objective - Vital Signs Vital signs: Vital Signs Temp 98 F 04/10/21 08:00 Pulse 106 H 04/10/21 12:00 Resp 16 04/10/21 12:00 BP 109/71 04/10/21 12:00 Pulse Ox 98 04/10/21 12:00 Intake & Output 04/09/21 04/10/21 04/10/21 18:59 06:59 18:59 Intake Total 150 218 0 Output Total 200 900 Balance -50 -682 0 Weight 62.7 kg Intake: Intake, IV Titration 150 Amount Magnesium Sulfate-D5w Pmx 100 1 gm In Dextrose/Water 1 100ml.bag @ 100 mls/hr IVPB Q1H [facility] Rx#: [id number] cefTRIAXone 1 gm In 50 Sodium Chloride 0.9% 50 ml @ 100 mls/hr IVPB Q24HR [facility] Rx#:[id number] Oral 218 0 Output: Urine 200 900 Other: Voiding Method Toilet Toilet Toilet - Labs CBC & Chem 7: 04/10/21 05:37 04/10/21 09:56 Labs: Abnormal Lab Results - Last 24 Hours (Table) 04/09/21 04/09/21 04/10/21 Range/Units 17:26 21:51 01:22 WBC (3.8-10.6) k/uL RBC (3.80-5.40) m/uL Hgb (11.4-16.0) gm/dL Hct (34.0-46.0) % MCV (80.0-100.0) fL MCH (25.0-35.0) pg RDW (11.5-15.5) % Macrocytosis PT (9.0-12.0) sec INR (<1.2) Sodium 121 L 122 L 121 L (137-145) mmol/L Potassium (3.5-5.1) mmol/L Chloride (98-107) mmol/L Creatinine (0.52-1.04) mg/dL Glucose (74-99) mg/dL Calcium (8.4-10.2) mg/dL Total Bilirubin (0.2-1.3) mg/dL AST (14-36) U/L ALT (4-34) U/L Alkaline Phosphatase (38-126) U/L Albumin (3.5-5.0) g/dL 04/10/21 04/10/21 04/10/21 Range/Units 05:37 05:37 05:37 WBC 11.9 H (3.8-10.6) k/uL RBC 2.57 L (3.80-5.40) m/uL Hgb 10.7 L (11.4-16.0) gm/dL Hct 30.0 L (34.0-46.0) % MCV 116.7 H (80.0-100.0) fL MCH 41.7 H (25.0-35.0) pg RDW 16.0 H (11.5-15.5) % Macrocytosis Marked A PT 19.3 H (9.0-12.0) sec INR 2.0 H (<1.2) Sodium 120 L (137-145) mmol/L Potassium 3.4 L (3.5-5.1) mmol/L Chloride 86 L (98-107) mmol/L Creatinine 1.06 H (0.52-1.04) mg/dL Glucose 105 H (74-99) mg/dL Calcium 7.9 L (8.4-10.2) mg/dL Total Bilirubin 15.1 H* (0.2-1.3) mg/dL AST 127 H (14-36) U/L ALT 50 H (4-34) U/L Alkaline Phosphatase 269 H (38-126) U/L Albumin 2.4 L (3.5-5.0) g/dL 04/10/21 Range/Units 09:56 WBC (3.8-10.6) k/uL RBC (3.80-5.40) m/uL Hgb (11.4-16.0) gm/dL Hct (34.0-46.0) % MCV (80.0-100.0) fL MCH (25.0-35.0) pg RDW (11.5-15.5) % Macrocytosis PT (9.0-12.0) sec INR (<1.2) Sodium 122 L (137-145) mmol/L Potassium (3.5-5.1) mmol/L Chloride (98-107) mmol/L Creatinine (0.52-1.04) mg/dL Glucose (74-99) mg/dL Calcium (8.4-10.2) mg/dL Total Bilirubin (0.2-1.3) mg/dL AST (14-36) U/L ALT (4-34) U/L Alkaline Phosphatase (38-126) U/L Albumin (3.5-5.0) g/dL Microbiology - Last 24 Hours (Table) 04/06/21 19:57 Urine Culture - Final Urine,Voided Escherichia coli
[2021-04-10] MEDS ORDERED: LACTULOSE 20 GM/30 ML CUP PO PRN (19:45)
[2021-04-11] MEDS: THIAMINE 100 MG TAB PO SCH ×2 (06:41→16:05)
[2021-04-11] MEDS: FUROSEMIDE 10 MG/ML 4 ML VIAL IV SCH ×2 (08:08→20:36)
[2021-04-11] MEDS: MORPHINE SULFATE 2 MG/ML SYRINGE IVP PRN ×4 (08:09→20:29)
[2021-04-11] MEDS: FOLIC ACID 1 MG TAB PO SCH (08:10)
[2021-04-11] MEDS: prednisoLONE ORAL SOLUTION 15MG/5ML CUP PO SCH (08:11)
[2021-04-11 08:22] LABS: Albumin 2.7 g/dL (3.5-5.0); Calcium 8.4 mg/dL (8.4-10.2); Magnesium 1.8 mg/dL (1.6-2.3); Potassium 3.8 mmol/L (3.5-5.1)
[2021-04-11 08:23] LABS: Total Bilirubin 15.2 mg/dL (0.2-1.3); Total Protein 6.8 g/dL (6.3-8.2)
[2021-04-11 08:29] LABS: Anisocytosis Slight; HCT 33.9 % (34.0-46.0); HGB 11.6 gm/dL (11.4-16.0); MCH 41.3 pg (25.0-35.0); MCHC 34.1 g/dL (31.0-37.0); MCV 121.1 fL (80.0-100.0); Macrocytosis Marked; Mean Platelet Volume 7.9; Platelet Count 322 k/uL (150-450); RDW 16.9 % (11.5-15.5); WBC 16.9 k/uL (3.8-10.6)
[2021-04-11 08:30] LABS: INR 1.8 (<1.2)
[2021-04-11] MEDS ORDERED: PHYTONADIONE ORAL 5 MG/5 ML ORAL.SYRG PO STA (09:35)
--- NOTE | 2021-04-11 09:37 | P.PN ---
Subjective Progress Note Date: 04/10/21 Principal diagnosis: Acute alcoholic hepatitis, elevated liver enzymes, hyponatremia, alcohol abuse Patient is seen sitting in bed. No acute complaints reported. Tolerating diet. No abdominal pain. Objective - Vital Signs Vital signs: Vital Signs Temp 98 F 04/10/21 08:00 Pulse 99 04/10/21 08:00 Resp 16 04/10/21 08:00 BP 108/71 04/10/21 08:00 Pulse Ox 98 04/10/21 08:00 Intake & Output 04/09/21 04/10/21 04/10/21 18:59 06:59 18:59 Intake Total 150 218 0 Output Total 200 900 Balance -50 -682 0 Weight 62.7 kg Intake: Intake, IV Titration 150 Amount Magnesium Sulfate-D5w Pmx 100 1 gm In Dextrose/Water 1 100ml.bag @ 100 mls/hr IVPB Q1H [facility] Rx#: [id number] cefTRIAXone 1 gm In 50 Sodium Chloride 0.9% 50 ml @ 100 mls/hr IVPB Q24HR [facility] Rx#:[id number] Oral 218 0 Output: Urine 200 900 Other: Voiding Method Toilet Toilet - Exam On physical examination, patient appears comfortable in no apparent distress. HEAD: Normocephalic, atraumatic. EYES: Scleral icterus. No conjunctival injection. MOUTH: No lesions, tongue midline. NECK: Trachea midline, no gross abnormalities. ABDOMEN: Soft, nontender. Bowel sounds are positive. No organomegaly. No guarding or rigidity. EXTREMITIES: Bilateral pedal edema. SKIN: No rashes, jaundice. NEUROLOGIC: Alert and oriented x3, no asterixis. No focal deficits. - Labs CBC & Chem 7: 04/11/21 07:30 04/11/21 07:30 Labs: Abnormal Lab Results - Last 24 Hours (Table) 04/09/21 04/09/21 04/09/21 Range/Units 12:59 17:26 21:51 WBC (3.8-10.6) k/uL RBC (3.80-5.40) m/uL Hgb (11.4-16.0) gm/dL Hct (34.0-46.0) % MCV (80.0-100.0) fL MCH (25.0-35.0) pg RDW (11.5-15.5) % Macrocytosis PT (9.0-12.0) sec INR (<1.2) Sodium 121 L 121 L 122 L (137-145) mmol/L Potassium (3.5-5.1) mmol/L Chloride (98-107) mmol/L Creatinine (0.52-1.04) mg/dL Glucose (74-99) mg/dL Calcium (8.4-10.2) mg/dL Total Bilirubin (0.2-1.3) mg/dL AST (14-36) U/L ALT (4-34) U/L Alkaline Phosphatase (38-126) U/L Albumin (3.5-5.0) g/dL 04/10/21 04/10/21 04/10/21 Range/Units 01:22 05:37 05:37 WBC 11.9 H (3.8-10.6) k/uL RBC 2.57 L (3.80-5.40) m/uL Hgb 10.7 L (11.4-16.0) gm/dL Hct 30.0 L (34.0-46.0) % MCV 116.7 H (80.0-100.0) fL MCH 41.7 H (25.0-35.0) pg RDW 16.0 H (11.5-15.5) % Macrocytosis Marked A PT (9.0-12.0) sec INR (<1.2) Sodium 121 L 120 L (137-145) mmol/L Potassium 3.4 L (3.5-5.1) mmol/L Chloride 86 L (98-107) mmol/L Creatinine 1.06 H (0.52-1.04) mg/dL Glucose 105 H (74-99) mg/dL Calcium 7.9 L (8.4-10.2) mg/dL Total Bilirubin 15.1 H* (0.2-1.3) mg/dL AST 127 H (14-36) U/L ALT 50 H (4-34) U/L Alkaline Phosphatase 269 H (38-126) U/L Albumin 2.4 L (3.5-5.0) g/dL 04/10/21 04/10/21 Range/Units 05:37 09:56 WBC (3.8-10.6) k/uL RBC (3.80-5.40) m/uL Hgb (11.4-16.0) gm/dL Hct (34.0-46.0) % MCV (80.0-100.0) fL MCH (25.0-35.0) pg RDW (11.5-15.5) % Macrocytosis PT 19.3 H (9.0-12.0) sec INR 2.0 H (<1.2) Sodium 122 L (137-145) mmol/L Potassium (3.5-5.1) mmol/L Chloride (98-107) mmol/L Creatinine (0.52-1.04) mg/dL Glucose (74-99) mg/dL Calcium (8.4-10.2) mg/dL Total Bilirubin (0.2-1.3) mg/dL AST (14-36) U/L ALT (4-34) U/L Alkaline Phosphatase (38-126) U/L Albumin (3.5-5.0) g/dL Microbiology - Last 24 Hours (Table) 04/06/21 19:57 Urine Culture - Final Urine,Voided Escherichia coli Assessment and Plan (1) Alcoholic cirrhosis Narrative/Plan: 40-year-old female who presented to the emergency department after being evaluated in urgent care for abdominal distention and jaundice. Patient has a history of significant alcohol abuse, stated she started drinking at 19 years old. She has been drinking 1-2 pints of libra a day. She started noticing some abdominal distention and yellowing of her skin about a week ago, Monday she started noticing that her eyes were becoming deeply yellow and her urine was getting very dark. She denies any previous history of liver disease, no history of hepatitis. On presentation her LFTs were consistent with alcoholic hepatitis, ultrasound shows findings consistent with cirrhosis of the liver, and acute viral hepatitis panel testing was negative. Current Visit: Yes Status: Acute Code(s): K70.30 - ALCOHOLIC CIRRHOSIS OF LIVER WITHOUT ASCITES SNOMED Code(s): 257805523 (2) Hyperbilirubinemia Current Visit: Yes Status: Acute Code(s): E80.6 - OTHER DISORDERS OF BILIRUBIN METABOLISM SNOMED Code(s): 93667000 Plan: 1. Continue regular diet 2. Continue symptomatic and supportive care 3. Avoid hepatotoxic medications 4. Alcohol cessation, discussed with patient importance of alcohol cessation otherwise will lead to progression of disease. Katherine this consultation, we will continue to follow 5. Repeat CMP daily 6. Repeat INR in the morning 7. Monitor electrolytes closely, nephrology following and patient currently receiving Tolvaptan and Lasix 8. Oral vitamin K given 2 Thank you for allowing us to participate in the care of the patient we will continue to follow
[2021-04-11] MEDS ORDERED: TOLVAPTAN 15 MG 1/2 TABLET PO ONE (10:04)
--- NOTE | 2021-04-11 13:14 | PN ---
PROGRESS NOTE Patient is seen for followup for hyponatremia. She received a dose of tolvaptan yesterday and serum sodium has improved to 125 today. The patient is currently maintained on IV Lasix 40 mg q.8 hours. She states that her swelling is slowly improving. Her creatinine however noted to be at 1.48 today. Blood pressure is stable. EXAMINATION: Today, blood pressure 111/77, heart rate 98 per minute. Patient is afebrile. Examination of the heart S1, S2. Examination of the lungs, bilateral breath sounds are heard. Abdomen is soft, nontender, distended with ascites. Exam of lower extremities shows edema 3+ bilaterally. [employer] exam grossly intact. LAB: Show sodium 125, potassium 3.8, serum creatinine 1.48. ASSESSMENT: 1. Hyponatremia currently hypervolemic with history of EtOH abuse status post 3% saline initially. Currently maintained on IV Lasix. Serum sodium has been staying at about 122 mEq/L. Patient got a dose of tolvaptan yesterday and today it is up to 125. Overall, patient states that her volume status is slowly improving. We had held off on the Samsca due to the ETOH abuse and transaminitis. However, her liver enzymes continue to improve. I will continue with the IV Lasix for now and repeat another low-dose tolvaptan today. 2. ETOH abuse. 3. Edema associated with underlying chronic liver disease. 4. Severe hyperbilirubinemia with bilirubin at 15.2. 5. Hypokalemia, status post replacement. PLAN: Continue with IV Lasix. Repeat another dose of tolvaptan today. Recommend to discontinue the prednisone which will add to further salt and water retention. Cortisol level was not low. MMODL / IJN: [id number] /
--- NOTE | 2021-04-11 15:28 | P.PN ---
Subjective Progress Note Date: 04/11/21 Principal diagnosis: yellowing of skin Patient is a 40-year-old male with a history of alcohol abuse who presented to the emergency department with complaints of abdominal distention and yellowing of her skin. She was found have severe hyponatremia, coagulopathy, elevated LFTs, and lactic acidosis. She was admitted for further monitoring. She was seen by nephrology and ultimately required 3% normal saline. She was seen by GI that concerns for cirrhosis. She was also seen by pulmonary secondary to being in the ICU. Her 3% normal saline was stopped and she was transitioned to Lasix. She was started on Rocephin for SBP prophylaxis. Her sodium did not improve and she was given a dose of Samsca. She was started on prednisolone for possible alcohol hepatitis. Patient seen and examined at bedside. Belly pain is better, still with significant edema. No nausea or vomiting. Eating and drinking well. General: Ill appearing, no distress, jaundice, appears older than stated age Derm: warm, dry Head: atraumatic, normocephalic, symmetric Eyes: EOMI, no lid lag, + scleral icterus Mouth: no lip lesion, mucus membranes moist Cardiovascular: S1S2 reg, no murmur, positive posterior tibial pulse bilateral, Lungs: Decreased bs bilateral, no rhonchi, no rales , no accessory muscle use Abdominal: soft, tender to palpation diffusely, distended, no guarding, no appreciable organomegaly Ext: no gross muscle atrophy, 2+ edema, no contractures Neuro: CN II-XI grossly intact, no focal neuro deficits Psych: Alert, oriented, appropriate affect Symptomatic hyponatremia -Possibly secondary to beerpotomania versus cirrhosis -Status post 3% normal saline -Continue with diuresis -Follow serial sodium levels -Nephrology recommendations appreciated: Samsca X 04/10/21 and 04/11/21 Suspect acute alcoholic hepatitis on top of decompensated cirrhosis -Patient does have abdominal pain, leukocytosis, AST to ALT ratio greater than 2 both less than 500 as well as elevated bilirubin and INR -Manage a discriminate function is a 41. Prednisolone 40 mg daily started 04/09/21 and stopped on 04/11 after discussion with nephro and concerns for increasing fluid retention -Abstain from alcohol -GI recommendations -Outpatient follow-up -On Rocephin for SBP prophylaxis -Hepatitis A, B, and C negative -Heterogeneous liver consistent with chronic disease Coagulopathy secondary to above - Vit K given 04/10 without much improvement -Continue to monitor Alcohol abuse -Add folic acid -Thiamine -[facility] protocol Leukocytosis, likely secondary to steroid use -Follow CBC Hypokalemia, resolved Lactic acidosis, resolved Hypomagnesemia, resolved DVT prophylaxis: SCDs Discussed with: patient Anticipated discharge: in 2-[address]: home A total of 35 minutes was spent on the care of this complex patient more than 50% of the time was spent in counseling and care coordination. Objective - Vital Signs Vital signs: Vital Signs Temp 98.2 F 04/11/21 08:00 Pulse 98 04/11/21 12:00 Resp 16 04/11/21 12:00 BP 111/77 04/11/21 12:00 Pulse Ox 98 04/11/21 12:00 Intake & Output 04/10/21 04/11/21 04/11/21 18:59 06:59 18:59 Intake Total 120 240 Balance 120 240 Weight 62.1 kg Intake: Oral 120 240 Other: Voiding Method Toilet Toilet Toilet # Voids 1 - Labs CBC & Chem 7: 04/11/21 07:30 04/11/21 07:30 Labs: Abnormal Lab Results - Last 24 Hours (Table) 04/10/21 04/11/21 04/11/21 Range/Units 14:24 07:30 07:30 WBC 16.9 H (3.8-10.6) k/uL RBC 2.80 L (3.80-5.40) m/uL Hct 33.9 L (34.0-46.0) % MCV 121.1 H (80.0-100.0) fL MCH 41.3 H (25.0-35.0) pg RDW 16.9 H (11.5-15.5) % Macrocytosis Marked A PT 18.0 H (9.0-12.0) sec INR 1.8 H (<1.2) Sodium 122 L (137-145) mmol/L Chloride (98-107) mmol/L Creatinine (0.52-1.04) mg/dL Total Bilirubin (0.2-1.3) mg/dL AST (14-36) U/L ALT (4-34) U/L Alkaline Phosphatase (38-126) U/L Albumin (3.5-5.0) g/dL 04/11/21 Range/Units 07:30 WBC (3.8-10.6) k/uL RBC (3.80-5.40) m/uL Hct (34.0-46.0) % MCV (80.0-100.0) fL MCH (25.0-35.0) pg RDW (11.5-15.5) % Macrocytosis PT (9.0-12.0) sec INR (<1.2) Sodium 125 L (137-145) mmol/L Chloride 87 L (98-107) mmol/L Creatinine 1.48 H (0.52-1.04) mg/dL Total Bilirubin 15.2 H* (0.2-1.3) mg/dL AST 135 H (14-36) U/L ALT 52 H (4-34) U/L Alkaline Phosphatase 323 H (38-126) U/L Albumin 2.7 L (3.5-5.0) g/dL
[2021-04-12] MEDS: MORPHINE SULFATE 2 MG/ML SYRINGE IVP PRN ×4 (00:20→21:04)
--- NOTE | 2021-04-12 06:52 | P.PN ---
Subjective Progress Note Date: 04/11/21 Principal diagnosis: Acute alcoholic hepatitis, elevated liver enzymes, hyponatremia, alcohol abuse Patient is seen sitting in bed. No acute complaints reported. Tolerating diet. No abdominal pain. Objective - Vital Signs Vital signs: Vital Signs Temp 98.2 F 04/11/21 08:00 Pulse 109 H 04/11/21 08:00 Resp 16 04/11/21 08:00 BP 101/64 04/11/21 08:00 Pulse Ox 98 04/11/21 08:00 Intake & Output 04/10/21 04/11/21 04/11/21 18:59 06:59 18:59 Intake Total 120 240 Balance 120 240 Weight 62.1 kg Intake: Oral 120 240 Other: Voiding Method Toilet Toilet Toilet # Voids 1 - Exam On physical examination, patient appears comfortable in no apparent distress. HEAD: Normocephalic, atraumatic. EYES: Scleral icterus. No conjunctival injection. MOUTH: No lesions, tongue midline. NECK: Trachea midline, no gross abnormalities. ABDOMEN: Soft, nontender. Bowel sounds are positive. No organomegaly. No guarding or rigidity. EXTREMITIES: Bilateral pedal edema. SKIN: No rashes, jaundice. NEUROLOGIC: Alert and oriented x3, no asterixis. No focal deficits. - Labs CBC & Chem 7: 04/11/21 07:30 04/11/21 07:30 Labs: Abnormal Lab Results - Last 24 Hours (Table) 04/10/21 04/10/21 04/11/21 Range/Units 09:56 14:24 07:30 WBC 16.9 H (3.8-10.6) k/uL RBC 2.80 L (3.80-5.40) m/uL Hct 33.9 L (34.0-46.0) % MCV 121.1 H (80.0-100.0) fL MCH 41.3 H (25.0-35.0) pg RDW 16.9 H (11.5-15.5) % Macrocytosis Marked A PT (9.0-12.0) sec INR (<1.2) Sodium 122 L 122 L (137-145) mmol/L Chloride (98-107) mmol/L Creatinine (0.52-1.04) mg/dL Total Bilirubin (0.2-1.3) mg/dL AST (14-36) U/L ALT (4-34) U/L Alkaline Phosphatase (38-126) U/L Albumin (3.5-5.0) g/dL 04/11/21 04/11/21 Range/Units 07:30 07:30 WBC (3.8-10.6) k/uL RBC (3.80-5.40) m/uL Hct (34.0-46.0) % MCV (80.0-100.0) fL MCH (25.0-35.0) pg RDW (11.5-15.5) % Macrocytosis PT 18.0 H (9.0-12.0) sec INR 1.8 H (<1.2) Sodium 125 L (137-145) mmol/L Chloride 87 L (98-107) mmol/L Creatinine 1.48 H (0.52-1.04) mg/dL Total Bilirubin 15.2 H* (0.2-1.3) mg/dL AST 135 H (14-36) U/L ALT 52 H (4-34) U/L Alkaline Phosphatase 323 H (38-126) U/L Albumin 2.7 L (3.5-5.0) g/dL Assessment and Plan (1) Alcoholic cirrhosis Narrative/Plan: 40-year-old female who presented to the emergency department after being evaluated in urgent care for abdominal distention and jaundice. Patient has a history of significant alcohol abuse, stated she started drinking at 19 years old. She has been drinking 1-2 pints of libra a day. She started noticing some abdominal distention and yellowing of her skin about a week ago, Monday she started noticing that her eyes were becoming deeply yellow and her urine was getting very dark. She denies any previous history of liver disease, no history of hepatitis. On presentation her LFTs were consistent with alcoholic hepatitis, ultrasound shows findings consistent with cirrhosis of the liver, and acute viral hepatitis panel testing was negative. Current Visit: Yes Status: Acute Code(s): K70.30 - ALCOHOLIC CIRRHOSIS OF LIVER WITHOUT ASCITES SNOMED Code(s): 075021430 (2) Hyperbilirubinemia Current Visit: Yes Status: Acute Code(s): E80.6 - OTHER DISORDERS OF BILIRUBIN METABOLISM SNOMED Code(s): 05121266 Plan: 1. Continue regular diet 2. Continue symptomatic and supportive care 3. Avoid hepatotoxic medications 4. Alcohol cessation, discussed with patient importance of alcohol cessation otherwise will lead to progression of disease. Katherine this consultation, we will continue to follow 5. Repeat CMP daily 6. Repeat INR in the morning 7. Monitor electrolytes closely, nephrology following and patient currently receiving Tolvaptan and Lasix 8. Oral vitamin K given, second dose today Thank you for allowing us to participate in the care of the patient we will continue to follow
[2021-04-12] MEDS: THIAMINE 100 MG TAB PO SCH ×2 (07:08→18:23)
[2021-04-12 08:06] LABS: HCT 33.1 % (34.0-46.0); HGB 11.3 gm/dL (11.4-16.0); MCH 40.3 pg (25.0-35.0); MCHC 34.3 g/dL (31.0-37.0); MCV 117.6 fL (80.0-100.0); Macrocytosis Marked; Mean Platelet Volume 7.8; Platelet Count 334 k/uL (150-450); RBC 2.81 m/uL (3.80-5.40); RDW 15.9 % (11.5-15.5); WBC 16.8 k/uL (3.8-10.6)
[2021-04-12 08:19] LABS: Albumin 2.8 g/dL (3.5-5.0); Calcium 8.7 mg/dL (8.4-10.2); Potassium 3.8 mmol/L (3.5-5.1); Total Bilirubin 13.1 mg/dL (0.2-1.3); Total Protein 7.1 g/dL (6.3-8.2)
[2021-04-12] MEDS: FOLIC ACID 1 MG TAB PO SCH (08:36)
[2021-04-12] MEDS: FUROSEMIDE 10 MG/ML 4 ML VIAL IV SCH ×2 (08:36→21:04)
--- NOTE | 2021-04-12 09:59 | P.PN ---
Subjective Progress Note Date: 04/12/21 Principal diagnosis: yellowing of skin Patient is a 40-year-old male with a history of alcohol abuse who presented to the emergency department with complaints of abdominal distention and yellowing of her skin. She was found have severe hyponatremia, coagulopathy, elevated LFTs, and lactic acidosis. She was admitted for further monitoring. She was seen by nephrology and ultimately required 3% normal saline. She was seen by GI that concerns for cirrhosis. She was also seen by pulmonary secondary to being in the ICU. Her 3% normal saline was stopped and she was transitioned to Lasix. She was started on Rocephin for SBP prophylaxis. Her sodium did not improve and she was given a dose of Samsca. She was started on prednisolone for possible alcohol hepatitis. Patient seen and examined at bedside. DOing well, eating and drinking well, we again discussed the importance of not drinking when she is discharge. General: non toxic, no distress, jaundice, appears older than stated age Derm: warm, dry Head: atraumatic, normocephalic, symmetric Eyes: EOMI, no lid lag, + scleral icterus Mouth: no lip lesion, mucus membranes moist Cardiovascular: S1S2 reg, no murmur, positive posterior tibial pulse bilateral, Lungs: Ronchi left base , no accessory muscle use Abdominal: soft, tender to palpation diffusely, distended, no guarding, no appreciable organomegaly Ext: no gross muscle atrophy, 2+ edema, no contractures Neuro: CN II-XI grossly intact, no focal neuro deficits Psych: Alert, oriented, appropriate affect Symptomatic hyponatremia -with hypervolemia -Status post 3% normal saline -Continue with diuresis -Follow serial sodium levels -Nephrology recommendations appreciated: Samsca X 04/10/21 and 04/11/21 Suspect acute alcoholic hepatitis on top of decompensated cirrhosis -Patient does have abdominal pain, leukocytosis, AST to ALT ratio greater than 2 both less than 500 as well as elevated bilirubin and INR -Manage a discriminate function is a 41. Prednisolone 40 mg daily started 04/09/21 and stopped on 04/11 after discussion with nephro and concerns for increasing fluid retention -Abstain from alcohol -GI recommendations -Outpatient follow-up -On Rocephin for SBP prophylaxis -Hepatitis A, B, and C negative -Heterogeneous liver consistent with chronic disease Coagulopathy secondary to above - Vit K given 04/10 without much improvement -Continue to monitor Alcohol abuse -folic acid -Thiamine -[facility] protocol Leukocytosis, likely secondary to steroid use -Follow CBC Hypokalemia, resolved Lactic acidosis, resolved Hypomagnesemia, resolved anticipate home in AM DVT prophylaxis: SCDs Discussed with: patient Anticipated discharge: in 2-[address]: home A total of 35 minutes was spent on the care of this complex patient more than 50% of the time was spent in counseling and care coordination. Objective - Vital Signs Vital signs: Vital Signs Temp 98.3 F 04/12/21 04:00 Pulse 88 04/12/21 04:00 Resp 16 04/12/21 04:00 BP 104/60 04/12/21 04:00 Pulse Ox 95 04/12/21 04:00 Intake & Output 04/11/21 04/12/21 04/12/21 18:59 06:59 18:59 Intake Total 420 118 Balance 420 118 Intake: Oral 420 118 Other: Voiding Method Toilet Toilet - Labs CBC & Chem 7: 04/12/21 07:42 04/12/21 07:42 Labs: Abnormal Lab Results - Last 24 Hours (Table) 04/12/21 04/12/21 Range/Units 07:42 07:42 WBC 16.8 H (3.8-10.6) k/uL RBC 2.81 L (3.80-5.40) m/uL Hgb 11.3 L (11.4-16.0) gm/dL Hct 33.1 L (34.0-46.0) % MCV 117.6 H (80.0-100.0) fL MCH 40.3 H (25.0-35.0) pg RDW 15.9 H (11.5-15.5) % Macrocytosis Marked A Sodium 128 L (137-145) mmol/L Chloride 88 L (98-107) mmol/L Carbon Dioxide 33 H (22-30) mmol/L BUN 19 H (7-17) mg/dL Creatinine 1.41 H (0.52-1.04) mg/dL Total Bilirubin 13.1 H (0.2-1.3) mg/dL AST 139 H (14-36) U/L ALT 56 H (4-34) U/L Alkaline Phosphatase 382 H (38-126) U/L Albumin 2.8 L (3.5-5.0) g/dL
--- NOTE | 2021-04-12 10:18 | P.PN ---
Subjective Patient is seen in follow-up for acute kidney injury and hyponatremia. She is maintained on IV Lasix. Good urine output. Edema improving. Sodium level 128. No vomiting or diarrhea. Vital signs are stable. General: The patient appeared well nourished and normally developed. HEENT: Head exam is unremarkable. Neck is without jugular venous distension. LUNGS: Breath sounds decreased. HEART: Rate and Rhythm are regular. ABDOMEN: Soft, no distention. EXTREMITITES: 1+ edema. Objective - Vital Signs Vital signs: Vital Signs Temp 98.3 F 04/12/21 04:00 Pulse 88 04/12/21 04:00 Resp 16 04/12/21 04:00 BP 104/60 04/12/21 04:00 Pulse Ox 95 04/12/21 04:00 Intake & Output 04/11/21 04/12/21 04/12/21 18:59 06:59 18:59 Intake Total 420 118 Balance 420 118 Intake: Oral 420 118 Other: Voiding Method Toilet Toilet - Labs CBC & Chem 7: 04/12/21 07:42 04/12/21 07:42 Labs: Abnormal Lab Results - Last 24 Hours (Table) 04/12/21 04/12/21 Range/Units 07:42 07:42 WBC 16.8 H (3.8-10.6) k/uL RBC 2.81 L (3.80-5.40) m/uL Hgb 11.3 L (11.4-16.0) gm/dL Hct 33.1 L (34.0-46.0) % MCV 117.6 H (80.0-100.0) fL MCH 40.3 H (25.0-35.0) pg RDW 15.9 H (11.5-15.5) % Macrocytosis Marked A Sodium 128 L (137-145) mmol/L Chloride 88 L (98-107) mmol/L Carbon Dioxide 33 H (22-30) mmol/L BUN 19 H (7-17) mg/dL Creatinine 1.41 H (0.52-1.04) mg/dL Total Bilirubin 13.1 H (0.2-1.3) mg/dL AST 139 H (14-36) U/L ALT 56 H (4-34) U/L Alkaline Phosphatase 382 H (38-126) U/L Albumin 2.8 L (3.5-5.0) g/dL Assessment and Plan Plan: Assessment: 1. Hypervolemic hyponatremia improving with diuresis. Status post and at this admission. Sodium level 128 this morning. 2. Alcohol abuse. 3. Volume overload. 4. Chronic liver disease. 5. Hypokalemia from poor intake and diuresis. Replaced. Better. Plan: Maintain IV Lasix. Maintain fluid restriction. Encourage oral intake, particularly protein. Repeat electrolytes in the morning.
--- NOTE | 2021-04-12 13:29 | P.PN ---
Subjective Progress Note Date: 04/12/21 Principal diagnosis: Liver failure, hyperbilirubinemia Patient seen and examined sitting up in bed. Overall she looks well today. States she is feeling better today. Denies any abdominal pain, nausea, or vomiting. She is stating that she did have some increased swelling in her lower extremities and has ELI hose applied. Liver enzymes stable, total bilirubin 13.1, alkaline phosphatase 382, AST 139, ALT 52. She denies any signs or symptoms of GI bleed. Objective - Vital Signs Vital signs: Vital Signs Temp 98.8 F 04/12/21 08:00 Pulse 103 H 04/12/21 08:00 Resp 16 04/12/21 08:00 BP 116/76 04/12/21 08:00 Pulse Ox 99 04/12/21 08:00 Intake & Output 04/11/21 04/12/21 04/12/21 18:59 06:59 18:59 Intake Total 420 118 Balance 420 118 Intake: Oral 420 118 Other: Voiding Method Toilet Toilet Toilet - Exam General appearance: The patient is alert, oriented, appears in no acute distress. HET: Head is normocephalic and atraumatic. Conjunctiva pink. Sclera icterus. Neck: Supple without lymphadenopathy. Abdomen: Soft, nontender, nondistended with bowel sounds. No guarding or rigidity. Extremities: Normal skin color and turgor. No pedal edema Skin: No rashes, jaundice Neurological: No focal deficits. Alert and oriented 3. - Labs CBC & Chem 7: 04/12/21 07:42 04/12/21 07:42 Labs: Abnormal Lab Results - Last 24 Hours (Table) 04/12/21 04/12/21 Range/Units 07:42 07:42 WBC 16.8 H (3.8-10.6) k/uL RBC 2.81 L (3.80-5.40) m/uL Hgb 11.3 L (11.4-16.0) gm/dL Hct 33.1 L (34.0-46.0) % MCV 117.6 H (80.0-100.0) fL MCH 40.3 H (25.0-35.0) pg RDW 15.9 H (11.5-15.5) % Macrocytosis Marked A Sodium 128 L (137-145) mmol/L Chloride 88 L (98-107) mmol/L Carbon Dioxide 33 H (22-30) mmol/L BUN 19 H (7-17) mg/dL Creatinine 1.41 H (0.52-1.04) mg/dL Total Bilirubin 13.1 H (0.2-1.3) mg/dL AST 139 H (14-36) U/L ALT 56 H (4-34) U/L Alkaline Phosphatase 382 H (38-126) U/L Albumin 2.8 L (3.5-5.0) g/dL Assessment and Plan (1) Alcoholic cirrhosis Narrative/Plan: 40-year-old female who presented to the emergency department after being evaluated in urgent care for abdominal distention and jaundice. Patient has a history of significant alcohol abuse, stated she started drinking at 19 years old. She has been drinking 1-2 pints of libra a day. She started noticing some abdominal distention and yellowing of her skin about a week ago, Monday she started noticing that her eyes were becoming deeply yellow and her urine was getting very dark. She denies any previous history of liver disease, no history of hepatitis. On presentation her LFTs were consistent with alcoholic hepatitis, ultrasound shows findings consistent with cirrhosis of the liver. Current Visit: Yes Status: Acute Code(s): K70.30 - ALCOHOLIC CIRRHOSIS OF LIVER WITHOUT ASCITES SNOMED Code(s): 544589667 (2) Liver failure Current Visit: Yes Status: Acute Code(s): K72.90 - HEPATIC FAILURE, UNSPECIFIED WITHOUT COMA SNOMED Code(s): 80087372 (3) Hyperbilirubinemia Current Visit: Yes Status: Acute Code(s): E80.6 - OTHER DISORDERS OF BILIRUBIN METABOLISM SNOMED Code(s): 62593234 (4) Hyponatremia Narrative/Plan: Nephrology continuous to follow patient Current Visit: Yes Status: Acute Code(s): E87.1 - HYPO-OSMOLALITY AND HYPONATREMIA SNOMED Code(s): 09030554 Plan: 1. Continue regular diet 2. Continue symptomatic and supportive care 3. Avoid hepatotoxic medications 4. Alcohol cessation 5. Repeat CMP daily 6. Repeat INR in the morning 7. Continue to monitor electrolytes closely, nephrology following patient currently receiving Lasix 3 mg twice a day Thank You for this consultation, we will continue to follow Dr. Vigil I agree with the dictator's note, documented as a scribe by Linda Owen.
[2021-04-12 13:44] VITALS: BMI 25.0
[2021-04-13] MEDS: MORPHINE SULFATE 2 MG/ML SYRINGE IVP PRN ×2 (04:36→09:34)
[2021-04-13 05:08] VITALS: RESP 18; TEMP 98.1
[2021-04-13] MEDS: THIAMINE 100 MG TAB PO SCH ×2 (06:45→17:10)
[2021-04-13 07:41] LABS: INR 1.6 (<1.2); Prothrombin Time 16.2 sec (9.0-12.0)
[2021-04-13 07:52] LABS: Albumin 2.3 g/dL (3.5-5.0); Calcium 8.2 mg/dL (8.4-10.2); Magnesium 1.8 mg/dL (1.6-2.3); Potassium 2.8 mmol/L (3.5-5.1); Total Protein 6.1 g/dL (6.3-8.2)
[2021-04-13 08:02] LABS: Anisocytosis Slight; HCT 31.6 % (34.0-46.0); HGB 10.8 gm/dL (11.4-16.0); MCH 41.2 pg (25.0-35.0); MCHC 34.1 g/dL (31.0-37.0); MCV 120.9 fL (80.0-100.0); Macrocytosis Marked; Mean Platelet Volume 7.4; Platelet Count 281 k/uL (150-450); RBC 2.62 m/uL (3.80-5.40); RDW 16.5 % (11.5-15.5); WBC 10.7 k/uL (3.8-10.6)
[2021-04-13] MEDS ORDERED: POTASSIUM BICARBONATE/CIT AC 20 MEQ TABLET.EFF PO ONE (09:29)
[2021-04-13] MEDS: FUROSEMIDE 10 MG/ML 4 ML VIAL IV SCH (09:32)
[2021-04-13] MEDS: FOLIC ACID 1 MG TAB PO SCH (09:32)
[2021-04-13] MEDS: POTASSIUM CHLORIDE 10 MEQ in WATER FOR INJECTION 1 100ML.BAG IVPB SCH ×4 (09:53→19:10)
--- NOTE | 2021-04-13 10:02 | P.DS ---
Providers Date of admission: 04/06/21 22:14 Expected date of discharge: 04/13/21 Attending physician: Johnathan Brand MD Consults: 04/06/21 22:41 Consult Physician Routine Consulting Provider: Lamar Cui Consult Reason/Comments: Hyponatremia Do you want consulting provider notified?: Yes 04/06/21 22:42 Consult Physician Routine Consulting Provider: Aimee Burroughs Consult Reason/Comments: liver failure Do you want consulting provider notified?: Yes 04/07/21 20:50 Consult Physician Routine Consulting Provider: Chato Pereira Consult Reason/Comments: ICU management Do you want consulting provider notified?: Yes Primary care physician: Kaye Pinto Hospital Course: Discharge Diagnosis: Alcohlic cirrhosis Probable Cirrhosis Symptomatic hypervolemic hyponatremia Hypokalemia Coagulopathy fue to above Alocholism Leukocytosis due to above Lactic acidosis Hypomagnesemia Hospital Course: Patient is a 40-year-old male with a history of alcohol abuse who presented to the emergency department with complaints of abdominal distention and yellowing of her skin. She was found have severe hyponatremia, coagulopathy, elevated LFTs, and lactic acidosis. She was admitted for further monitoring. She was seen by nephrology and ultimately required 3% normal saline. She was seen by GI that concerns for cirrhosis. She was also seen by pulmonary secondary to being in the ICU. Her 3% normal saline was stopped and she was transitioned to Lasix. She was started on Rocephin for SBP prophylaxis. Her sodium did not improve and she was given a dose of Samsca. She was started on prednisolone for possible alcohol hepatitis. There were concerns that the steroid was increasing fluid retention and it was discontinued. She was given a second dose of Samsca with good results. She did have some increased Cr due to forced diuresis, but stabalized prior to discharge. Her bilirubin and liver enzymes were decreasing. She was determined stable for dicharge home. Follow-up: [facility] on 04/16, follow-up with Dr. Nunes in 1-[address] Burroughs in [address] Pinto in the week. 1.5 L fluid restriction and 4 g sodium restriction. Patient seen and examined at bedside. Vital signs reviewed and stable. General: non toxic, no distress, appears at stated age Derm:+ Jaundie warm, dry Head: atraumatic, normocephalic, symmetric Eyes: EOMI, no lid lag, + icteric sclera Mouth: no lip lesion, mucus membranes moist Cardiovascular: S1S2 reg, no murmur, positive posterior tibial pulse bilateral, Lungs: CTA bilateral, no rhonchi, no rales , no accessory muscle use Abdominal: soft, nontender to palpation, no guarding, no appreciable organomegaly, + distended with ascities Ext: no gross muscle atrophy, 2+ edema, no contractures Neuro: CN II-XI grossly intact, no focal neuro deficits Psych: Alert, oriented, appropriate affect A total of 35 minutes of time were spent preparing this complex discharge summary . Patient Condition at Discharge: Serious Plan - Discharge Summary Discharge Rx Participant: No New Discharge Prescriptions: New Furosemide [Lasix] 40 mg PO DAILY #30 tablet Spironolactone 25 mg PO AC-BID #60 tablet Discontinued L.acidoph,Paracasei, B.lactis [Probiotic] 1 cap PO DAILY Discharge Medication List Furosemide [Lasix] 40 mg PO DAILY #30 tablet 04/13/21 [Rx] Spironolactone 25 mg PO AC-BID #60 tablet 04/13/21 [Rx] Follow up Appointment(s)/Referral(s): Aimee Burroughs MD [STAFF PHYSICIAN] - 2 Weeks Kaye Pinto MD [Primary Care Provider] - 1-2 days Marlo Nunes DO [STAFF PHYSICIAN] - 2 Weeks Ambulatory/Diagnostic Orders: Basic Metabolic Panel [LAB.AMB] Time Frame: 3 Days, Location: None Selected Patient Instructions/Handouts: Cirrhosis (DC), Abuse of Alcohol (DC), Ascites (DC) Activity/Diet/Wound Care/Special Instructions: Activity: as tolerated Diet: 4 gram sodium, 1.5L fluid restriction Wound Care: apply antibiotic ointment for 5 days Special Instructions: Blood work on Monday 04/16 Acetaminophen for pain as needed, do not take more then 2000mg in a day Abstain from Alcohol Discharge Disposition: HOME SELF-CARE
--- NOTE | 2021-04-13 10:03 | P.PN ---
Subjective Patient is seen in follow-up for acute kidney injury and hyponatremia. She is maintained on IV Lasix. Good urine output. Edema improving. Sodium level 129. No vomiting or diarrhea. Renal function stable. Vital signs are stable. General: The patient appeared well nourished and normally developed. HEENT: Head exam is unremarkable. LUNGS: Breath sounds decreased. HEART: Rate and Rhythm are regular. ABDOMEN: Soft, no distention. EXTREMITITES: Trace edema. Objective - Vital Signs Vital signs: Vital Signs Temp 98.1 F 04/13/21 04:00 Pulse 90 04/13/21 04:00 Resp 18 04/13/21 04:00 BP 124/76 04/13/21 04:00 Pulse Ox 95 04/13/21 04:00 Intake & Output 04/12/21 04/13/21 04/13/21 18:59 06:59 18:59 Intake Total 598 0 Output Total 650 Balance 598 -650 0 Weight 62.1 kg Intake: Oral 598 0 Output: Urine 650 Other: Voiding Method Toilet Toilet - Labs CBC & Chem 7: 04/13/21 07:07 04/13/21 07:07 Labs: Abnormal Lab Results - Last 24 Hours (Table) 04/13/21 04/13/21 04/13/21 Range/Units 07:07 07:07 07:07 WBC 10.7 H (3.8-10.6) k/uL RBC 2.62 L (3.80-5.40) m/uL Hgb 10.8 L (11.4-16.0) gm/dL Hct 31.6 L (34.0-46.0) % MCV 120.9 H (80.0-100.0) fL MCH 41.2 H (25.0-35.0) pg RDW 16.5 H (11.5-15.5) % Macrocytosis Marked A PT 16.2 H (9.0-12.0) sec INR 1.6 H (<1.2) Sodium 129 L (137-145) mmol/L Potassium 2.8 L (3.5-5.1) mmol/L Chloride 90 L (98-107) mmol/L Carbon Dioxide 33 H (22-30) mmol/L BUN 21 H (7-17) mg/dL Creatinine 1.47 H (0.52-1.04) mg/dL Glucose 119 H (74-99) mg/dL Calcium 8.2 L (8.4-10.2) mg/dL Total Bilirubin 11.0 H (0.2-1.3) mg/dL AST 115 H (14-36) U/L ALT 52 H (4-34) U/L Alkaline Phosphatase 331 H (38-126) U/L Total Protein 6.1 L (6.3-8.2) g/dL Albumin 2.3 L (3.5-5.0) g/dL Assessment and Plan Plan: Assessment: 1. Hypervolemic hyponatremia improving with diuresis. Status post and at this admission. Sodium level 129 this morning. 2. Alcohol abuse. 3. Volume overload. Improving with diuresis. 4. Chronic liver disease. 5. Hypokalemia from poor intake and diuresis. Plan: Change Lasix to 40 mg orally once today. Add spironolactone 25 mg twice daily. Maintain fluid restriction. Encourage oral intake, particularly protein. Replace potassium. Repeat BMP and magnesium level 2-3 days postdischarge. Follow up outpatient in 1 week. Advised patient to maintain a low-salt diet as well as 40 ounce fluid restriction per day upon discharge and to monitor her weight closely. Case discussed with the primary team.
--- NOTE | 2021-04-13 15:13 | P.PN ---
Subjective Progress Note Date: 04/13/21 Principal diagnosis: Liver failure, hyperbilirubinemia Patient was seen and examined lying in bed. States she is feeling well. LFTs continued to trend down, total bilirubin 11.0. Plan is for discharge home today after potassium replacement. Sodium has improved and is 129 today, nephrology has been following patient closely and she will be discharged home on Lasix 40 mg daily and Aldactone 25 mg twice a day. Objective - Vital Signs Vital signs: Vital Signs Temp 98.1 F 04/13/21 04:00 Pulse 90 04/13/21 04:00 Resp 18 04/13/21 04:00 BP 124/76 04/13/21 04:00 Pulse Ox 95 04/13/21 04:00 Intake & Output 04/12/21 04/13/21 04/13/21 18:59 06:59 18:59 Intake Total 598 0 Output Total 650 Balance 598 -650 0 Weight 62.1 kg Intake: Oral 598 0 Output: Urine 650 Other: Voiding Method Toilet Toilet - Exam General appearance: The patient is alert, oriented, appears in no acute distress. HET: Head is normocephalic and atraumatic. Conjunctiva pink. Sclera icterus. Neck: Supple without lymphadenopathy. Abdomen: Soft, nontender, nondistended with bowel sounds. No guarding or rigidity. Extremities: Normal skin color and turgor. Bilateral pedal edema, compression stockings on. Skin: No rashes, jaundice Neurological: No focal deficits. Alert and oriented 3. - Labs CBC & Chem 7: 04/13/21 07:07 04/13/21 07:07 Labs: Abnormal Lab Results - Last 24 Hours (Table) 04/13/21 04/13/21 04/13/21 Range/Units 07:07 07:07 07:07 WBC 10.7 H (3.8-10.6) k/uL RBC 2.62 L (3.80-5.40) m/uL Hgb 10.8 L (11.4-16.0) gm/dL Hct 31.6 L (34.0-46.0) % MCV 120.9 H (80.0-100.0) fL MCH 41.2 H (25.0-35.0) pg RDW 16.5 H (11.5-15.5) % Macrocytosis Marked A PT 16.2 H (9.0-12.0) sec INR 1.6 H (<1.2) Sodium 129 L (137-145) mmol/L Potassium 2.8 L (3.5-5.1) mmol/L Chloride 90 L (98-107) mmol/L Carbon Dioxide 33 H (22-30) mmol/L BUN 21 H (7-17) mg/dL Creatinine 1.47 H (0.52-1.04) mg/dL Glucose 119 H (74-99) mg/dL Calcium 8.2 L (8.4-10.2) mg/dL Total Bilirubin 11.0 H (0.2-1.3) mg/dL AST 115 H (14-36) U/L ALT 52 H (4-34) U/L Alkaline Phosphatase 331 H (38-126) U/L Total Protein 6.1 L (6.3-8.2) g/dL Albumin 2.3 L (3.5-5.0) g/dL Assessment and Plan (1) Alcoholic cirrhosis Narrative/Plan: 40-year-old female who presented to the emergency department after being evaluated in urgent care for abdominal distention and jaundice. Patient has a history of significant alcohol abuse, stated she started drinking at 19 years old. She has been drinking 1-2 pints of libra a day. She started noticing some abdominal distention and yellowing of her skin about a week ago, Monday she started noticing that her eyes were becoming deeply yellow and her urine was getting very dark. She denies any previous history of liver disease, no history of hepatitis. On presentation her LFTs were consistent with alcoholic hepatitis, ultrasound shows findings consistent with cirrhosis of the liver. Current Visit: Yes Status: Acute Code(s): K70.30 - ALCOHOLIC CIRRHOSIS OF LIVER WITHOUT ASCITES SNOMED Code(s): 866602829 (2) Liver failure Narrative/Plan: 40-year-old female who presented to the emergency department after being evaluated in urgent care for abdominal distention and jaundice. Patient has a history of significant alcohol abuse, stated she started drinking at 19 years old. She has been drinking 1-2 pints of libra a day. She started noticing some abdominal distention and yellowing of her skin about a week ago, Monday she started noticing that her eyes were becoming deeply yellow and her urine was getting very dark. She denies any previous history of liver disease, no history of hepatitis. On presentation her LFTs were consistent with alcoholic hepatitis, ultrasound shows findings consistent with cirrhosis of the liver. Current Visit: Yes Status: Acute Code(s): K72.90 - HEPATIC FAILURE, UNSPECIFIED WITHOUT COMA SNOMED Code(s): 47926032 (3) Hyperbilirubinemia Current Visit: Yes Status: Acute Code(s): E80.6 - OTHER DISORDERS OF BILIRUBIN METABOLISM SNOMED Code(s): 04313585 (4) Hyponatremia Narrative/Plan: Nephrology continuous to follow patient Current Visit: Yes Status: Acute Code(s): E87.1 - HYPO-OSMOLALITY AND HYPONATREMIA SNOMED Code(s): 92874490 Plan: 1. Continue regular diet 2. Continue symptomatic and supportive care 3. Avoid hepatotoxic medications 4. Alcohol cessation 5. Replace potassium 6. Continue diuretics per recommendations from nephrology. Patient will be discharged home on Lasix 40 mg daily and Aldactone 25 mg twice a day 7. Patient will need outpatient for trending LFTs 8. Follow-up with gastroenterology in 2-3 weeks Thank You for this consultation, patient may be discharged home from a gastroenterology standpoint Dr. Vigil I agree with the dictator's note, documented as a scribe by Linda Owen.
[2021-04-13 18:05] VITALS: BP 128/73; PULSE 93
--- NOTE | 2021-04-14 13:54 | CDI ---
Documentation Clarification Form Date: 04/14/2021 01:44:09 PM From: Orville Escobar Admit Date: 04/06/2021 10:14:00 PM Patient Name: Jayne Wheeler Visit Number: [id number] Discharge Date: 04/13/2021 08:55:00 PM ATTENTION: The Clinical Documentation Specialists (CDI) and [facility] Coding Staff appreciate your assistance in clarifying documentation. Please respond to the clarification below the line at the bottom and electronically sign. The CDI & [facility] Coding staff will review the response and follow-up if needed. Please note: Queries are made part of the Legal Health Record. If you have any questions, please contact the author of this message via ITS. Dr. Johnathan Brand Your patient has a sodium level of 119 on admission. Please clarify if there is an additional diagnosis and/or clinical significance related to this lab value. H+P states hyponatremia may be due to hepatorenal syndrome. Not listed elsewhere in the chart. Need to determine if hepatorenal syndrome was ruled out. History/Risk Factors: Coagulopathy factor II. ELF. Lactic acidosis. Clinical indicators: Na 119 on admission Treatment: IV bolus NaCL Is there an additional diagnosis and/or clinical significance related to the above lab result/information? [ ] Hyponatremia only [ ] SIADH [ ] hepatorenal syndrome -- suspected but further testing was needed to confirm the diagnosis: progress notes from later dates along with Nephrology consults likely elaborate on this further [ ] Other condition, please specify [ ] Unable to determine MTDD
== END 2021-04-13 20:55 | disposition home or self-care (01) | DRG 432 ==
LOC: EC 18:14 → 3SCARD 22:14 → 2SICU 04-07 22:16 → 3SCARD 04-09 10:40
PROVIDERS: ADMIT Internal Medicine; ATTEND Internal Medicine
DX: K70.31 Alcoholic cirrhosis of liver with ascites (principal); K76.7 Hepatorenal syndrome; E87.1 Hypo-osmolality and hyponatremia; E87.2 Acidosis; E44.0 Moderate protein-calorie malnutrition; D68.9 Coagulation defect, unspecified; N17.9 Acute kidney failure, unspecified; K76.6 Portal hypertension; F10.20 Alcohol dependence, uncomplicated; E87.6 Hypokalemia; E83.42 Hypomagnesemia; K72.90 Hepatic failure, unspecified without coma; Z68.25 Body mass index [BMI] 25.0-25.9, adult; K70.11 Alcoholic hepatitis with ascites; D72.829 Elevated white blood cell count, unspecified; E78.5 Hyperlipidemia, unspecified; E83.52 Hypercalcemia; E87.5 Hyperkalemia; E87.70 Fluid overload, unspecified; H91.90 Unspecified hearing loss, unspecified ear; E11.22 Type 2 diabetes mellitus with diabetic chronic kidney disease; I12.9 Hypertensive chronic kidney disease with stage 1 through stage 4 chronic kidney disease, or unspecified chronic kidney disease; Z20.822 Contact with and (suspected) exposure to COVID-19; N18.9 Chronic kidney disease, unspecified; R29.6 Repeated falls; M79.7 Fibromyalgia; T38.0X5A Adverse effect of glucocorticoids and synthetic analogues, initial encounter; I25.10 Atherosclerotic heart disease of native coronary artery without angina pectoris; I25.2 Old myocardial infarction; Z82.49 Family history of ischemic heart disease and other diseases of the circulatory system
CPT/HCPCS: 36415; 76705; 80048; 80051; 80053; 80074; 80076; 80320; 81001; 81025; 82140; 82533; 82570; 82728; 82747; 83540; 83550; 83605; 83690; 83735; 83930; 83935; 84132; 84295; 84300; 84443; 84540; 84550; 84560; 85025; 85027; 85610; 85730; 87077; 87086; 87186

== ENCOUNTER 2021-04-29 12:24 | Day surgery (SDC) | payer OTHER ==
[2021-04-29] MEDS ORDERED: ALPRAZolam 0.5 MG TAB PO STA (13:27)
[2021-04-29 13:32] LABS: Basophils # (A) 0.1 k/uL (0-0.2); Basophils % (A) 1 %; Eosinophils # (A) 0.1 k/uL (0-0.7); Eosinophils % (A) 1 %; HCT 32.7 % (34.0-46.0); HGB 11.1 gm/dL (11.4-16.0); Lymphocytes # (A) 1.9 k/uL (1.0-4.8); Lymphocytes % (A) 19 %; MCH 39.3 pg (25.0-35.0); Macrocytosis Marked; Mean Platelet Volume 8.2; Monocytes # (A) 0.7 k/uL (0-1.0); Monocytes % (A) 7 %; Neutrophils % (A) 70 %; Platelet Count 394 k/uL (150-450); RBC 2.83 m/uL (3.80-5.40); RDW 14.4 % (11.5-15.5); WBC 9.9 k/uL (3.8-10.6)
[2021-04-29 13:34] LABS: INR 1.1 (<1.2)
[2021-04-29 13:35] LABS: Prothrombin Time 11.6 sec (9.0-12.0)
[2021-04-29 13:36] LABS: MCV 115.6 fL (80.0-100.0)
[2021-04-29 13:39] LABS: African American GFR (CKD) >90 (>60 ml/min/1.73 sqM); Anion Gap 9 mmol/L; Blood Urea Nitrogen 9 mg/dL (7-17); Calcium 8.4 mg/dL (8.4-10.2); Carbon Dioxide 26 mmol/L (22-30); Chloride 98 mmol/L (98-107); Glucose 145 mg/dL (74-99); Non-African American GFR(CKD) >90 (>60 ml/min/1.73 sqM); Sodium 133 mmol/L (137-145)
[2021-04-29 13:41] VITALS: RESP 16; TEMP 98.9
[2021-04-29 13:52] LABS: Magnesium 1.5 mg/dL (1.6-2.3); Potassium 4.4 mmol/L (3.5-5.1)
[2021-04-29 15:17] VITALS: BP 129/86; PULSE 88
--- NOTE | 2021-04-29 16:04 | US ---
Ultrasound-guided paracentesis. DATE OF EXAM: 04/29/2021 CLINICAL HISTORY: Ascites The procedure was discussed with the patient. The risks, complications, benefits, and alternatives we re discussed and any questions were answered. Informed consent was obtained. The patient was placed s upine on the ultrasound table and prepped and draped in the usual sterile fashion. All elements of maximal barrier technique were utilized. Under ultrasound guidance, access into the right lower quadrant was obtained, via the paracentesis catheter system and direct ultrasound guidanc e. Approximately 2.4 liters of straw-colored fluid was removed. The patient was stable throughout the pr ocedure and remained stable upon discharge from Department of Radiology. IMPRESSION: Successful paracentesis under ultrasound guidance.
[2021-04-29 17:05] LABS: Appearance,BF Cloudy; Nucleated Cells, Body Fluid 156 /uL; RBC, Body Fluid 89 /uL
[2021-04-29 17:59] LABS: Mononuclear WBC,Body Fluid 77 %; Polynuclear WBC,Body Fluid 23 %; Total Cells Counted,Body Fluid 100
[2021-04-30 04:04] LABS: Albumin, Fluid Source Paracentesis Fluid; Total Protein, Body Fluid 672 mg/dL
== END 2021-04-29 14:50 | disposition home or self-care (01) ==
LOC: RADPROMAIN 12:24
PROVIDERS: ATTEND Internal Medicine
DX: R18.8 Other ascites (principal)
CPT/HCPCS: 36415; 49083; 80048; 82040; 82042; 83735; 84157; 85025; 85610; 89050

== ENCOUNTER → 2022-07-28 | Outpatient (CLI) | payer OTHER ==
--- NOTE | 2022-07-29 05:45 | MR ---
EXAMINATION TYPE: MR foot LT wo con DATE OF EXAM: 07/28/2022 COMPARISON: None HISTORY: Lt foot Mid foot swelling, bruising, closed nondisplaced fracture L calcaneous, Dislocation of tarsometatarsal joint Multiplanar multiecho imaging of the left foot performed without contrast. There is mild ankle joint effusion. The medial and lateral flexor tendons appear intact. There is sub cutaneous edema on the dorsum of the foot. There is some edema in the mid and proximal second metatar sandra. No fracture line seen. The Achilles tendon appears intact. Plantar fascia is intact. There is a triangular-shaped chip fracture of the anterior inferior calcaneus measuring 10 mm. No dis placement. I see no definite dislocation of the tarsometatarsal joints. No evidence of a soft tissue mass. IMPRESSION: There is some edema in the mid and proximal second metatarsal consistent with a significant bone brui se. Nondisplaced chip fracture of the anterior inferior calcaneus. Mild ankle joint effusion. Subcutaneous edema.
== END | disposition home or self-care (01) ==
LOC: RADMRIMAIN 07:38
PROVIDERS: ATTEND Student in an Organized Health Care Education/Training Program
DX: M25.472 Effusion, left ankle (principal)

== ENCOUNTER 2024-07-17 13:45 | Emergency (ER) | payer OTHER ==
--- NOTE | 2024-07-17 14:24 | ED ---
Abdominal Pain HPI - General Chief Complaint: Abdominal Pain Stated Complaint: abn labs Time Seen by Provider: 07/17/24 14:02 Source: patient, RN notes reviewed Mode of arrival: wheelchair Limitations: no limitations - History of Present Illness Initial Comments: This is a 44-year-old female presenting with sinus pain and feeling shaky x 3 days. Patient states she was at [facility] yesterday where lab work was performed showing hypokalemia and hypomagnesia. Patient given electrolyte replacement for both and stabilized before being discharged. States she did not have imaging done at that time. Patient states she is still having similar symptoms along with decreased appetite and new left upper quadrant abdominal pain (2 out of 10). Patient describes pain as intermittent and stabbing along with diarrhea. Patient states she is nearing her 30-day of Prozac use with history of anxiety. Patient denies fever, chills, chest pain, dyspnea, nausea, vomiting, hematochezia, melena. MD Complaint: abdominal pain Location: LUQ Radiation: none Migration to: no migration - Related Data Previous Rx's Medication Instructions Recorded Furosemide [Lasix] 40 mg PO DAILY #30 tablet 04/13/21 Spironolactone 25 mg PO AC-BID #60 tablet 04/13/21 Allergies Allergy/AdvReac Type Severity Reaction Status Date / Time No Known Allergies Allergy Verified 04/29/21 13:41 Review of Systems ROS Statement: Those systems with pertinent positive or pertinent negative responses have been documented in the HPI. ROS Other: All systems not noted in ROS Statement are negative. Past Medical History Past Medical History: Liver Disease Additional Past Medical History / Comment(s): alcoholism History of Any Multi-Drug Resistant Organisms: None Reported Additional Past Surgical History / Comment(s): foot, nasal Past Anesthesia/Blood Transfusion Reactions: No Reported Reaction Past Psychological History: No Psychological Hx Reported Smoking Status: Never smoker Past Alcohol Use History: Abuse, Daily Past Drug Use History: Marijuana - Past Family History Father Family Medical History: Hypertension General Exam Limitations: no limitations General appearance: alert, in no apparent distress Head exam: Present: atraumatic, normocephalic, normal inspection Eye exam: Present: normal appearance, PERRL, EOMI. Absent: scleral icterus, conjunctival injection, periorbital swelling ENT exam: Present: normal exam, mucous membranes moist Neck exam: Present: normal inspection. Absent: tenderness, meningismus, lymphadenopathy Respiratory exam: Present: normal lung sounds bilaterally. Absent: respiratory distress, wheezes, rales, rhonchi, stridor Cardiovascular Exam: Present: regular rate, normal rhythm, normal heart sounds. Absent: systolic murmur, diastolic murmur, rubs, gallop, clicks GI/Abdominal exam: Present: soft (Negative Grimes sign and McBurney's point. Negative tympanic or rebound tenderness. Negative left upper quadrant tenderness), normal bowel sounds. Absent: distended, tenderness, guarding, rebound, rigid Extremities exam: Present: normal inspection, full ROM, normal capillary refill. Absent: tenderness, pedal edema, joint swelling, calf tenderness Back exam: Present: normal inspection Neurological exam: Present: alert, oriented X3, CN II-XII intact Psychiatric exam: Present: normal affect, normal mood Skin exam: Present: warm, dry, intact, normal color. Absent: rash Course Vital Signs 07/17/24 07/17/24 13:47 16:56 Temperature 97.4 F L 98.1 F Pulse Rate 87 86 Respiratory 24 18 Rate Blood Pressure 141/78 131/83 O2 Sat by Pulse 100 99 Oximetry Medical Decision Making - Medical Decision Making Was pt. sent in by a medical professional or institution (, PA, GROUP COUNSELOR, urgent care, hospital, or group home...) When possible be specific @ -No Did you speak to anyone other than the patient for history (EMS, parent, family, police, friend...)? What history was obtained from this source @ -No Did you review nursing and triage notes (agree or disagree)? Why? @ -I reviewed and agree with nursing and triage notes Were old charts reviewed (outside hosp., previous admission, EMS record, old EKG , old radiological studies, urgent care reports/EKG's, group home records)? Report findings @ -No old charts were reviewed Differential Diagnosis (chest pain, altered mental status, abdominal pain women, abdominal pain men, vaginal bleeding, weakness, fever, dyspnea, syncope, headache, dizziness, GI bleed, back pain, seizure, CVA, palpatations, mental health, musculoskeletal)? @ -Differential Abdominal Pain Women: Appendicitis, Cholecystitis, diverticulosis, ischemic bowel, pancreatitis, hep atitis, UTI, gastroenteritis, AAA, incarcerated hernia, bowel obstruction, constipation, inflammatory bowel, hepatitis, peptic ulcer disease, splenic infarction, perforated viscus, vulvitis, ovarian torsion, PID, kidney stone, placenta abruption, this is not meant to be an all-inclusive list EKG interpreted by me (3pts min.). @ -Sinus rhythm without ST changes or T wave inversion. Ventricular rate 70 bpm, CO interval 131 ms, QRS duration 88 ms, QTc 379 ms. X-rays interpreted by me (1pt min.). @ -None done CT interpreted by me (1pt min.). @ -Abdominal CT shows atrophied left kidney but otherwise unremarkable. U/S interpreted by me (1pt. min.). @ -None done What testing was considered but not performed or refused? (CT, X-rays, U/S, labs)? Why? @ -None What meds were considered but not given or refused? Why? @ -None Did you discuss the management of the patient with other professionals (p [employer] i.e. , PA, GROUP COUNSELOR, lab, RT, psych nurse, executive secretary social welfare, primary education professor, teacher, correctional officer, wrapper caser)? Give summary @ -No Was smoking cessation discussed for >3mins.? @ -No Was critical care preformed (if so, how long)? @ -No Were there social determinants of health that impacted care today? How? (Homelessness, low income, unemployed, alcoholism, drug addiction, transportation, low edu. Level, literacy, decrease access to med. care, snf, rehab)? @ -No Was there de-escalation of care discussed even if they declined (Discuss DNR or withdrawal of care, Hospice)? DNR status @ -No What co-morbidities impacted this encounter? (DM, HTN, Smoking, COPD, CAD, Cancer, CVA, ARF, Chemo, Hep., AIDS, mental health diagnosis, sleep apnea, morbid obesity)? @ -Anxiety Was patient admitted / discharged? Hospital course, mention meds given and route, prescriptions, significant lab abnormalities, going to OR and other pertinent info. @ -Discharge. UA and twelve-lead were unremarkable. Lab work shows leukocytosis otherwise electrolytes are within normal limits. Patient given dose of Ativan IV for anxiety with minimal change in symptoms. Vies follow-up with PCP regarding effects of Prozac and any ongoing symptoms. Advised return to ER if experiencing fever, chills or worsening abdominal pain. Undiagnosed new problem with uncertain prognosis? @ -No Drug Therapy requiring intensive monitoring for toxicity (Heparin, Nitro, Insulin, Cardizem)? @ -No Were any procedures done? @ -No Diagnosis/symptom? @ -Anxiety Acute, or Chronic, or Acute on Chronic? @ -Acute Uncomplicated (without systemic symptoms) or Complicated (systemic symptoms)? @ -Uncomplicated Side effects of treatment? @ -No Exacerbation, Progression, or Severe Exacerbation? @ -No Poses a threat to life or bodily function? How? (Chest pain, USA, DC, pneumonia, PE, COPD, DKA, ARF, appy, cholecystitis, CVA, Diverticulitis, Homicidal, Suicidal, threat to staff... and all critical care pts) @ -No - Lab Data Result diagrams: 07/17/24 14:31 07/17/24 14:31 Lab Results 07/17/24 07/17/24 07/17/24 Range/Units 14:31 14:31 14:31 WBC 17.1 H (3.8-10.6) k/uL RBC 4.99 (3.80-5.40) m/uL Hgb 15.1 (11.4-16.0) gm/dL Hct 44.5 (34.0-46.0) % MCV 89.1 (80.0-100.0) fL MCH 30.3 (25.0-35.0) pg MCHC 34.0 (31.0-37.0) g/dL RDW 13.0 (11.5-15.5) % Plt Count 383 (150-450) k/uL MPV 8.1 Neutrophils % 84 % Lymphocytes % 12 % Monocytes % 3 % Eosinophils % 1 % Basophils % 0 % Neutrophils # 14.3 H (1.3-7.7) k/uL Lymphocytes # 2.0 (1.0-4.8) k/uL Monocytes # 0.5 (0-1.0) k/uL Eosinophils # 0.1 (0-0.7) k/uL Basophils # 0.1 (0-0.2) k/uL Sodium (137-145) mmol/L Potassium (3.5-5.1) mmol/L Chloride (98-107) mmol/L Carbon Dioxide (22-30) mmol/L Anion Gap mmol/L BUN (7-17) mg/dL Creatinine (0.52-1.04) mg/dL Est GFR (CKD-EPI)AfAm (>60 ml/min/1.73 sqM) Est GFR (CKD-EPI)NonAf (>60 ml/min/1.73 sqM) Glucose (74-99) mg/dL Plasma Lactic Acid Robin (0.7-2.0) mmol/L Calcium (8.4-10.2) mg/dL Total Bilirubin (0.2-1.3) mg/dL AST (14-36) U/L ALT (4-34) U/L Alkaline Phosphatase (38-126) U/L Troponin I (0.000-0.034) ng/mL Total Protein (6.3-8.2) g/dL Albumin (3.5-5.0) g/dL Amylase (30-110) U/L Lipase (23-300) U/L Urine Color Colorless Urine Appearance Clear (Clear) Urine pH 6.5 (5.0-8.0) Ur Specific Parrott 1.003 (1.001-1.035) Urine Protein Negative (Negative) Urine Glucose (UA) Negative (Negative) Urine Ketones Negative (Negative) Urine Blood Negative (Negative) Urine Nitrite Negative (Negative) Urine Bilirubin Negative (Negative) Urine Urobilinogen <2.0 (<2.0) mg/dL Ur Leukocyte Esterase Negative (Negative) Urine HCG, Qual Not Detected (Not Detectd) 07/17/24 07/17/24 07/17/24 Range/Units 14:31 14:31 14:31 WBC (3.8-10.6) k/uL RBC (3.80-5.40) m/uL Hgb (11.4-16.0) gm/dL Hct (34.0-46.0) % MCV (80.0-100.0) fL MCH (25.0-35.0) pg MCHC (31.0-37.0) g/dL RDW (11.5-15.5) % Plt Count (150-450) k/uL MPV Neutrophils % % Lymphocytes % % Monocytes % % Eosinophils % % Basophils % % Neutrophils # (1.3-7.7) k/uL Lymphocytes # (1.0-4.8) k/uL Monocytes # (0-1.0) k/uL Eosinophils # (0-0.7) k/uL Basophils # (0-0.2) k/uL Sodium 138 (137-145) mmol/L Potassium 3.6 (3.5-5.1) mmol/L Chloride 105 (98-107) mmol/L Carbon Dioxide 18 L (22-30) mmol/L Anion Gap 15 mmol/L BUN 10 (7-17) mg/dL Creatinine 0.71 (0.52-1.04) mg/dL Est GFR (CKD-EPI)AfAm >90 (>60 ml/min/1.73 sqM) Est GFR (CKD-EPI)NonAf >90 (>60 ml/min/1.73 sqM) Glucose 107 H (74-99) mg/dL Plasma Lactic Acid Robin 1.9 (0.7-2.0) mmol/L Calcium 10.1 (8.4-10.2) mg/dL Total Bilirubin 0.7 (0.2-1.3) mg/dL AST 22 (14-36) U/L ALT 21 (4-34) U/L Alkaline Phosphatase 67 (38-126) U/L Troponin I <0.012 (0.000-0.034) ng/mL Total Protein 8.4 H (6.3-8.2) g/dL Albumin 5.3 H (3.5-5.0) g/dL Amylase 66 (30-110) U/L Lipase 104 (23-300) U/L Urine Color Urine Appearance (Clear) Urine pH (5.0-8.0) Ur Specific Parrott (1.001-1.035) Urine Protein (Negative) Urine Glucose (UA) (Negative) Urine Ketones (Negative) Urine Blood (Negative) Urine Nitrite (Negative) Urine Bilirubin (Negative) Urine Urobilinogen (<2.0) mg/dL Ur Leukocyte Esterase (Negative) Urine HCG, Qual (Not Detectd) Disposition Clinical Impression: Anxiety, Leukocytosis Disposition: HOME SELF-CARE Condition: Good Additional Instructions: Advised return to ER if experiencing fever, chills or worsening pain Is patient prescribed a controlled substance at d/c from ED?: No Referrals: Kaye Pinto MD [Primary Care Provider] - 1-2 days Time of Disposition: 16:20
[2024-07-17 14:45] LABS: Basophils # (A) 0.1 k/uL (0-0.2); Basophils % (A) 0 %; Eosinophils # (A) 0.1 k/uL (0-0.7); Eosinophils % (A) 1 %; HCT 44.5 % (34.0-46.0); HGB 15.1 gm/dL (11.4-16.0); Lymphocytes % (A) 12 %; MCH 30.3 pg (25.0-35.0); MCV 89.1 fL (80.0-100.0); Mean Platelet Volume 8.1; Monocytes # (A) 0.5 k/uL (0-1.0); Monocytes % (A) 3 %; Neutrophils # (A) 14.3 k/uL (1.3-7.7); Neutrophils % (A) 84 %; Platelet Count 383 k/uL (150-450); RBC 4.99 m/uL (3.80-5.40); WBC 17.1 k/uL (3.8-10.6)
[2024-07-17 14:58] LABS: Appearance,Urine Clear (Clear); Bilirubin,Urine Negative (Negative); Blood,Urine Negative (Negative); Color,Urine Colorless; Glucose,Urine (UA) Negative (Negative); Ketones,Urine Negative (Negative); Leukocyte Esterase,Urine Negative (Negative); Nitrite,Urine Negative (Negative); PH, Urine 6.5 (5.0-8.0); Protein,Urine Negative (Negative); Specific Gravity,Urine 1.003 (1.001-1.035); Urobilinogen,Urine <2.0 mg/dL (<2.0)
[2024-07-17 15:01] LABS: ALT 21 U/L (4-34); AST 22 U/L (14-36); African American GFR (CKD) >90 (>60 ml/min/1.73 sqM); Albumin 5.3 g/dL (3.5-5.0); Alkaline Phosphatase 67 U/L (38-126); Amylase 66 U/L (30-110); Anion Gap 15 mmol/L; Blood Urea Nitrogen 10 mg/dL (7-17); Calcium 10.1 mg/dL (8.4-10.2); Carbon Dioxide 18 mmol/L (22-30); Chloride 105 mmol/L (98-107); Glucose 107 mg/dL (74-99); Lipase 104 U/L (23-300); Non-African American GFR(CKD) >90 (>60 ml/min/1.73 sqM); Potassium 3.6 mmol/L (3.5-5.1); Sodium 138 mmol/L (137-145); Total Bilirubin 0.7 mg/dL (0.2-1.3); Total Protein 8.4 g/dL (6.3-8.2)
[2024-07-17] MEDS: SODIUM CHLORIDE 0.9% 500 ML 500 ML IV STA (15:01)
--- NOTE | 2024-07-17 15:42 | CT ---
EXAMINATION TYPE: CT abdomen pelvis w con CT DLP: 730.7 mGycm, Automated exposure control for dose reduction was used. DATE OF EXAM: 07/17/2024 3:30 PM COMPARISON: None CLINICAL INDICATION: Female, 44 years old with history of abdominal pain; c/o feeling clammy, shaky, decreased appetite, L abdomen pain TECHNIQUE: Axial CT abdomen pelvis w con;Sagittal and coronal reformats were created on a separate w orkstation. Contrast used:100ml mL of Isovue 300 with IV Contrast, (none if empty) Oral contrast used: without Oral Contrast (none if empty) FINDINGS: LOWER CHEST: Unremarkable ABDOMEN LIVER: Unremarkable GALLBLADDER AND BILE DUCTS: Unremarkable. PANCREAS: Unremarkable. SPLEEN: Unremarkable. ADRENAL GLANDS: Unremarkable. KIDNEYS AND URETERS: Atrophic left kidney compared to the right hypertrophy of the right kidney. No e vidence of hydronephrosis or renal calculus. The ureters are unremarkable. PELVIS BLADDER: Unremarkable REPRODUCTIVE: Intrauterine device seen within the endometrium. ABDOMEN & PELVIS STOMACH AND BOWEL: No evidence of bowel obstruction. Scattered colonic diverticula. The appendix is n ormal. PERITONEUM/RETROPERITONEUM: No evidence of pneumoperitoneum or free fluid. VASCULATURE: No evidence of aortic aneurysm. MUSCULOSKELETAL: No acute osseous abnormalities. Moderate disc degeneration changes are present throu ghout the thoracolumbar spine. Moderate neural foraminal stenosis at L5-S1 bilaterally. LYMPH NODES: No gross evidence for lymphadenopathy. SOFT TISSUE/ABDOMINAL WALL: Fat-containing buccal hernia. IMPRESSION: 1. No evidence for acute abdominal process. 2. Atrophic left kidney. No obstructive uropathy renal calculus. 3. Colonic diverticulosis. 4. IUD in appropriate position. [facility], , 07/17/2024 3:39 PM
[2024-07-17] MEDS: LORazepam 2 MG/ML INJ IV STA (16:22)
[2024-07-17 16:58] VITALS: BP 131/83; PULSE 86; RESP 18; TEMP 98.1
== END 2024-07-17 16:58 | disposition home or self-care (01) ==
LOC: EC 13:45
DX: K57.30 Diverticulosis of large intestine without perforation or abscess without bleeding (principal); D72.829 Elevated white blood cell count, unspecified; F41.9 Anxiety disorder, unspecified; N26.1 Atrophy of kidney (terminal)
CPT/HCPCS: 36415; 93005; 80053; 82150; 83605; 83690; 84484; 85025; 81003; 81025; 74177; 99284; 96374; J2060; Q9967